=== PATIENT | male | born 1950 | race African-American/Black ===

== ENCOUNTER 2019-02-09 01:04 | Inpatient (IN) | payer MEDICARE ==
[2019-02-09] MEDS ORDERED: ASPIRIN 81 MG TABLET, CHEWABLE PO ONE (01:28)
--- NOTE | 2019-02-09 01:59 | ER Document Report ---
ED Medical Screen (RME) - General Chief Complaint: Chest Pain Stated Complaint: CHEST PAIN Time Seen by Provider: 02/09/19 01:51 Primary Care Provider: YANIV MONTANO [Primary Care Provider] - Follow up as needed Notes: Patient is a 68-year-old male who presents the emergency department with a chief complaint of chest pain. He is driving from [place] here to [place] to be transferred to [facility]. He had been in the car the whole time and did not get out frequently. Patient has a history of a CVA and MD in the past. He has stents placed 4 to 5 years ago. Exam: S1-S2. Retractions noted. I have greeted and performed a rapid initial assessment of this patient. A comprehensive ED assessment and evaluation of the patient, analysis of test results and completion of medical decision making process will be conducted by an additional ED providers. TRAVEL OUTSIDE OF THE [place] IN LAST 30 DAYS: No Physical Exam - Vital signs Vitals: Temp Pulse Resp BP Pulse Ox 98.3 F 95 20 188/136 H 97 02/09/19 01:42 02/09/19 01:42 02/09/19 01:42 02/09/19 01:42 02/09/19 01:42 Course - Vital Signs Vital signs: Temp Pulse Resp BP Pulse Ox 98.3 F 95 20 188/136 H 97 02/09/19 01:42 02/09/19 01:42 02/09/19 01:42 02/09/19 01:42 02/09/19 01:42 Doctor's Discharge - Discharge Referrals: YANIV MONTANO [Primary Care Provider] - Follow up as needed
[2019-02-09 02:38] LABS: ABSOLUTE BASOPHILS # (AUTO) 0.1 10^3/uL (0.0-0.2); ABSOLUTE EOSINOPHILS # (AUTO) 0.2 10^3/uL (0.0-0.6); ABSOLUTE LYMPHOCYTES (AUTO) 1.8 10^3/uL (0.5-4.7); ABSOLUTE NEUT (AUTO) 5.3 10^3/uL (1.7-8.2); BASOPHILS % (AUTO) 0.9 % (0-2); EOSINOPHILS % (AUTO) 2.8 % (0-6); HEMATOCRIT 48.5 % (37.9-51.0); LYMPHOCYTES % (AUTO) 21.4 % (13-45); MEAN CORPUSCULAR HEMOGLOBIN 28.6 pg (27.0-33.4); MEAN CORPUSCULAR VOLUME 87 fl (80-97); MONOCYTES % (AUTO) 12.2 % (3-13); PLATELET COUNT 196 10^3/uL (150-450); RED CELL DISTRIBUTION WIDTH 15.4 % (11.5-14.0); SEGMENTED NEUTROPHILS % (AUTO) 62.7 % (42-78); TOTAL CELLS COUNTED % (AUTO) 100 %; WHITE BLOOD COUNT 8.5 10^3/uL (4.0-10.5)
--- NOTE | 2019-02-09 02:42 | RADIOLOGY REPORT (SQ) ---
EXAM DESCRIPTION: XR CHEST 1 VIEW COMPLETED DATE/TME: 02/09/2019 01:28 CLINICAL HISTORY: 68 years Male, CP COMPARISON: None. NUMBER OF VIEWS/TECHNIQUE: 1/AP FINDINGS: Small obscuration-effusion of the left costophrenic angle. Adequate lung volume, normal cardiac silhouette, and sternotomy. Cardiac/mediastinal hardware/clips. IMPRESSION: Small obscuration-effusion of the left costophrenic angle.
[2019-02-09 02:53] LABS: ALANINE AMINOTRANSFERASE 23 U/L (21-72); ALBUMIN 4.5 g/dL (3.5-5.0); ALKALINE PHOSPHATASE 94 U/L (38-126); ANION GAP 11 (5-19); ASPARTATE AMINO TRANSFERASE 15 U/L (17-59); BILIRUBIN,DIRECT 0.3 mg/dL (0.0-0.4); BILIRUBIN,TOTAL 0.4 mg/dL (0.2-1.3); BLOOD UREA NITROGEN 16 mg/dL (7-20); CALCIUM 9.9 mg/dL (8.4-10.2); CARBON DIOXIDE 28 mmol/L (22-30); CHLORIDE 103 mmol/L (98-107); CREATINE KINASE 128 U/L (55-170); GLUCOSE 148 mg/dL (75-110); POTASSIUM 4.2 mmol/L (3.6-5.0); SODIUM 141.8 mmol/L (137-145); TOTAL PROTEIN 8.2 g/dL (6.3-8.2)
[2019-02-09 03:04] LABS: CREATINE KINASE MB 3.12 ng/mL (<4.55)
[2019-02-09 03:05] LABS: TROPONIN I 0.04 ng/mL
--- NOTE | 2019-02-09 03:06 | ER Document Report ---
ED General - General TRAVEL OUTSIDE OF THE [place] IN LAST 30 DAYS: No <CLAIRE POOLE - Last Filed: 02/09/19 06:55> <EZ MEDEIROS - Last Filed: 02/09/19 11:18> - General Stated Complaint: CHEST PAIN Time Seen by Provider: 02/09/19 01:51 Primary Care Provider: YANIV MONTANO [NO LOCAL MD] - Follow up as needed Notes: Patient is a pleasant 68-year-old male who presents with complaint of chest pain. He is actually being moved here from [place]. She is supposed to stay at [facility]. His son was driving him back here from [place]. On the way here he started having chest pain substernal nonradiating. Mild shortness of breath. No diaphoresis. Patient says his pain is not typical for him. He does have history of coronary disease as well as open heart surgery coronary bypass. That was done somewhere between 5 and 10 years ago. No recent heart catheterizations. No nausea. No vomiting. No other complaints at this time. (CLAIRE POOLE) - Related Data Allergies/Adverse Reactions: No Known Allergies Allergy (Unverified 02/09/19 02:04) Past Medical History - Social History Smoking Status: Never Smoker Chew tobacco use (# tins/day): No Frequency of alcohol use: None Drug Abuse: None Family History: Reviewed & Not Pertinent Patient has suicidal ideation: No Patient has homicidal ideation: No - Past Medical History Cardiac Medical History: Reports: Hx Congestive Heart Failure, Hx Hypertension Pulmonary Medical History: Reports: Hx COPD Endocrine Medical History: Reports: Hx Diabetes Mellitus Type 1 Renal/ Medical History: Denies: Hx Peritoneal Dialysis <CLAIRE POOLE - Last Filed: 02/09/19 06:55> Review of Systems <CLAIRE POOLE - Last Filed: 02/09/19 06:55> - Review of Systems Notes: My Normal Review Basic REVIEW OF SYSTEMS: CONSTITUTIONAL : Denies fever, chills, or sweats. Denies recent illness. EENT: Denies eye, ear, throat, or mouth pain or symptoms. Denies nasal or sinus congestion. CARDIOVASCULAR: Chest pain RESPIRATORY: Denies cough, cold, or chest congestion. Some mild difficulty breathing. GASTROINTESTINAL: Denies abdominal pain. Denies nausea, vomiting, or diarrhea. MUSCULOSKELETAL: Denies neck or back pain or joint pain or swelling. SKIN: Denies rash or skin lesions. NEUROLOGICAL: Denies altered mental status or loss of consciousness. Denies headache. Denies weakness or paralysis or loss of use of either side. Denies problems with gait or speech. Denies sensory or motor loss. ALL OTHER SYSTEMS REVIEWED AND NEGATIVE. (CLAIRE POOLE) Physical Exam <CLAIRE POOLE - Last Filed: 02/09/19 06:55> - Vital signs Vitals: Temp Pulse Resp BP Pulse Ox 98.3 F 95 20 188/136 H 97 02/09/19 01:42 02/09/19 01:42 02/09/19 01:42 02/09/19 01:42 02/09/19 01:42 - Notes Notes: General Appearance: Well nourished, alert, cooperative, no acute distress, no obvious discomfort. Vitals: reviewed, See vital signs table. Head: no swelling or tenderness to the head Eyes: PERRL, EOMI, Conjuctiva clear Mouth: No decreasd moisture Lungs: No wheezing, No rales, No rhonci, No accessory muscle use, good air exchange bilaterally. Heart: Normal rate, Regular rythm, No murmur, no rub Abdomen: Normal BS, soft, No rigidity, No abdominal tenderness, No guarding, no rebound Extremities: good pulses in all extremities, no swelling or tenderness in the extremities, no edema. Skin: warm, dry, appropriate color, no rash Neuro: speech clear, oriented x 3, normal affect, responds appropriately to questions. (CLAIRE POOLE) Course - Laboratory Result Diagrams: 02/09/19 02:28 02/09/19 02:28 <CLAIRE POOLE - Last Filed: 02/09/19 06:55> - Laboratory Result Diagrams: 02/09/19 02:28 02/09/19 02:28 <EZ MEDEIROS - Last Filed: 02/09/19 11:18> - Re-evaluation Re-evalutation: 02/09/19 04:54 Patient's chest pain is improved with application of Nitropaste. Has looked over his med list and he does not think he had any his meds in last 24 hours. His most likewise blood pressure still high. I will give him amlodipine, metopr olol, and clonidine. These all medications off his medication list. Due to his significant hypertension and chest pain and history of coronary disease I think is appropriate to admit him. I will speak with the hospitalist about admission. 02/09/19 06:57 [address] did speak with Dr. Fernandez, hospitalist, who requested I do repeat troponin he would pass on information of the patient to the [facility] hospitalist team to evaluate the patient for admission after repeat troponin. She remains chest pain-free with Nitropaste. Blood pressure continues to run low but high despite receiving his home blood pressure medications. Will order a dose of hydralazine. Dictation of this chart was performed using voice recognition software; therefore, there may be some unintended grammatical errors. 02/09/19 06:58 (CLAIRE POOLE) 02/09/19 11:17 Third troponin continues to be indeterminate 0.062, patient continues to be chest pain-free. Discussed the patient with Dr. Zarco who asked us to presented to Dr. Kearns, Dr. Kearns asked me to discuss the patient with Dr. Reese as the patient is a cardiac patient. Discussed the patient with Dr. Julien who agrees that we can continue to keep this chest pain patient pain free patient here while we continue to trend their troponins. After this discussion Dr. Veena jordan agrees to admit the patient to the telemetry care unit. (EZ MEDEIROS) - Vital Signs Vital signs: Temp Pulse Resp BP Pulse Ox 99.1 F 95 16 178/118 H 97 02/09/19 09:13 02/09/19 01:42 02/09/19 09:02 02/09/19 09:02 02/09/19 09:02 - Laboratory Laboratory results interpreted by me: 02/09/19 02/09/19 02:28 02:28 RBC 5.60 H RDW 15.4 H Est GFR (Non-Af Amer) 58 L Glucose 148 H AST 15 L - EKG Interpretation by Me Additional EKG results interpreted by me: 02/09/19 03:06 EKG is reviewed and interpreted by me. EKG shows sinus rhythm with a rate of [address] segment elevation or depression. No ischemic T wave inversions. MI interval and QTc intervals are within normal range. QRS duration is slightly prolonged. No old EKG available for comparison. (CLAIRE POOLE) Discharge <CLAIRE POOLE - Last Filed: 02/09/19 06:55> - Discharge Admitting Provider: Som (Hospitalist) Unit Admitted: Telemetry <EZ MEDEIROS - Last Filed: 02/09/19 11:18> - Discharge Clinical Impression: Chest pain Qualifiers: Chest pain type: unspecified Qualified Code(s): R07.9 - Chest pain, unspecified Hypertension Qualifiers: Hypertension type: unspecified Qualified Code(s): I10 - Essential (primary) hypertension Condition: Good Disposition: ADMITTED OBSERVATION Referrals: LOCALMD,NO [NO LOCAL MD] - Follow up as needed
--- NOTE | 2019-02-09 04:12 | RADIOLOGY REPORT (SQ) ---
CLINICAL HISTORY: chest pain; was on long car ride COMPARISON: None. TECHNIQUE: CT CHEST ANGIOGRAPHY WITHOUT THEN WITH IV CONTRAST on 02/09/2019 1:57 AM CDT. MIPS reconstructions were generated. This exam was performed according to our departmental dose-optimization program, which includes automated exposure control, adjustment of the mA and/or kV according to patient size and/or use of iterative reconstruction technique. MIP images were generated. FINDINGS: Thoracic aorta is normal in course and caliber without aneurysm or dissection. Pulmonary arteries are adequately opacified without acute or chronic filling defects. The heart is mildly enlarged following sternotomy. There is no pericardial effusion. Intrathoracic lymph nodes are not enlarged. There is no pleural effusion, pleural thickening or pneumothorax. Central airways are patent. Lungs are clear with no consolidation, mass or interstitial lung disease. There are no acute abnormalities within the limited images of the upper abdomen. There are no acute osseous findings. No suspicious bony lesions. IMPRESSION: No aortic dissection or aneurysm. No pulmonary embolus. No pneumonia.
[2019-02-09] MEDS ORDERED: NITROGLYCERIN 2% OINTMENT 1 GM PACKET TP ONE (04:17)
[2019-02-09] MEDS ORDERED: HYDRALAZINE HCL INJ/PF 20 MG/1 ML SDV IV ONE ×2 (04:50→06:59)
[2019-02-09] MEDS ORDERED: METOPROLOL TARTRATE 100 MG TABLET PO ONE (04:52)
[2019-02-09] MEDS ORDERED: CLONIDINE HCL 0.1 MG TABLET PO ONE (04:52)
[2019-02-09] MEDS ORDERED: AMLODIPINE BESYLATE 10 MG TABLET PO ONE (04:52)
--- NOTE | 2019-02-09 07:57 | EKG REPORT ---
SEVERITY:- DEFECTIVE ECG - SINUS RHYTHM PROBABLE LEFT ATRIAL ABNORMALITY BASELINE ARTIFACT.REPEAT EKG : Confirmed by: Leydi Julien MD 09-Feb-2019 07:57:00
[2019-02-09] MEDS ORDERED: ONDANSETRON HCL INJ/PF 4 MG/2 ML SDV IV PRN (11:31)
[2019-02-09] MEDS ORDERED: OXYCODONE-ACETAMINOPHEN 5-325 MG TABLET PO PRN (11:31)
[2019-02-09] MEDS ORDERED: DEXTROSE 50%-WATER 25 GM/50 ML DISP.SYRIN IV PRN ×2 (11:49)
[2019-02-09] MEDS ORDERED: DEXTROSE 40% GEL 15 GM TUBE PO PRN ×2 (11:49)
[2019-02-09] MEDS ORDERED: GLUCAGON,HUMAN RECOMB 1 MG INJ IM PRN (11:49)
--- NOTE | 2019-02-09 11:49 | PDOC H&P ---
History of Present Illness Admission Date/PCP: 02/09/19 11:25 History of Present Illness: LATRICE MAO is a 68 year old black male patient was past medical history of hypertension, congestive heart failure, COPD, type 2 diabetes mellitus coronary artery disease status post coronary artery bypass graft about 10 years ago and history of stroke with residual left-sided weakness and contracture, presented with chief complaint of chest pain. Patient is moved from [place] to [facility] in order to stay at [facility] long-term. His son was driving him back here from [place]. Enroute to [place] patient started to complain of chest pain which is localized to his substernal area nonradiating and about 1 out of 10 on pain scale at the time of my interview. Patient denies any palpitation or diaphoresis. He does not have any fever, cough, nausea, vomiting, abdominal pain, diarrhea or urinary complaints. His CT scan of the chest with contrast reported as no aortic dissection or aneurysm. No pneumonia. No PE. His blood work shows troponin of 0.040 next test 0.051 and the surgeon states is 0.062. Since patient has multiple risk factor for acute coronary syndrome I think is appropriate to admit him for observation and monitoring. Past Medical History Cardiac Medical History: Reports: Congestive Heart Failure, Hypertension Pulmonary Medical History: Reports: Chronic Obstructive Pulmonary Disease (COPD) Endocrine Medical History: Reports: Diabetes Mellitus Type 1 Social History Smoking Status: Never Smoker - Advance Directive Resuscitation Status: Full Code Family History Family History: Reviewed & Not Pertinent Parental Family History Reviewed: Yes Children Family History Reviewed: Yes Sibling(s) Family History Reviewed.: Yes Medication/Allergy Home Medications: Acetaminophen [Tylenol 325 mg Tablet] 650 mg PO Q6HP PRN 02/09/19 Amantadine HCl [Amantadine] 100 mg PO BID@0800,1200 02/09/19 Amlodipine Besylate [Norvasc 10 mg Tablet] 10 mg PO DAILY 02/09/19 Aspirin [Adult Low Dose Aspirin EC] 81 mg PO QAM 02/09/19 Atorvastatin Calcium [Lipitor 80 mg Tablet] 80 mg PO QHS 02/09/19 Baclofen [Baclofen 20 mg Tablet] 30 mg PO TIDP PRN 02/09/19 Clonidine HCl [Catapres 0.1 mg Tablet] 0.1 mg PO BID 02/09/19 Hydralazine HCl 100 mg PO TID 02/09/19 Ibuprofen [Motrin 400 mg Tablet] 400 mg PO DAILYP PRN 02/09/19 Ipratropium/Albuterol Sulfate [Duoneb 3 ml Ampul] 3 ml NEB RTQ6HP PRN 02/09/19 Metoprolol Tartrate [Lopressor 100 mg Tablet] 100 mg PO BID 02/09/19 Multivitamin [Multiple Vitamins] 1 tab PO DAILY 02/09/19 Polyethylene Glycol 3350 [Miralax Powder 17 gm/Packet] 17 gm PO DAILY 02/09/19 Allergies/Adverse Reactions: No Known Allergies Allergy (Unverified 02/09/19 02:04) Review of Systems Eyes: PRESENT: as per HPI Ears: PRESENT: as per HPI Nose, Mouth, and Throat: PRESENT: as per HPI Cardiovascular: PRESENT: chest pain Gastrointestinal: PRESENT: as per HPI Genitourinary: PRESENT: as per HPI Musculoskeletal: PRESENT: as per HPI Neurological: PRESENT: as per HPI Physical Exam Vital Signs: Temp Pulse Resp BP Pulse Ox 99.1 F 95 16 178/118 H 97 02/09/19 09:13 02/09/19 01:42 02/09/19 09:02 02/09/19 09:02 02/09/19 09:02 Intake & Output 02/08/19 02/09/19 02/10/19 06:59 06:59 06:59 Weight 88.451 kg General appearance: PRESENT: no acute distress Head exam: PRESENT: atraumatic Eye exam: PRESENT: conjunctiva pink Mouth exam: PRESENT: moist Neck exam: ABSENT: carotid bruit, JVD, lymphadenopathy, thyromegaly Respiratory exam: PRESENT: clear to auscultation sanchez. ABSENT: rales, rhonchi, wheezes Cardiovascular exam: PRESENT: RRR. ABSENT: diastolic murmur, rubs, systolic murmur GI/Abdominal exam: PRESENT: normal bowel sounds, soft. ABSENT: distended, gua rding, mass, organolmegaly, rebound, tenderness Neurological exam: PRESENT: alert, awake, oriented to person, oriented to place, other - Left-sided weakness and contracture Results Laboratory Results: 02/09/19 02:28 02/09/19 02:28 02/09/19 02/09/19 02:28 02:28 WBC 8.5 RBC 5.60 H Hgb 16.0 Hct 48.5 MCV 87 MCH 28.6 MCHC 33.0 RDW 15.4 H Plt Count 196 Seg Neutrophils % 62.7 Lymphocytes % 21.4 Monocytes % 12.2 Eosinophils % 2.8 Basophils % 0.9 Absolute Neutrophils 5.3 Absolute Lymphocytes 1.8 Absolute Monocytes 1.0 Absolute Eosinophils 0.2 Absolute Basophils 0.1 Sodium 141.8 Potassium 4.2 Chloride 103 Carbon Dioxide 28 Anion Gap 11 BUN 16 Creatinine 1.24 Est GFR ( Amer) > 60 Est GFR (Non-Af Amer) 58 L Glucose 148 H Calcium 9.9 Total Bilirubin 0.4 AST 15 L ALT 23 Alkaline Phosphatase 94 Total Protein 8.2 Albumin 4.5 02/09/19 02/09/19 02/09/19 02:28 02:28 05:48 Creatine Kinase 128 CK-MB (CK-2) 3.12 Troponin I 0.040 0.051 02/09/19 09:46 Creatine Kinase CK-MB (CK-2) Troponin I 0.062 Impressions: Chest X-Ray 02/09/19 01:28 IMPRESSION: Small obscuration-effusion of the left costophrenic angle. Chest/Abdomen CTA 02/09/19 01:57 IMPRESSION: No aortic dissection or aneurysm. No pulmonary embolus. No pneumonia. Assessment and Plan - Diagnosis (1) Chest pain Qualifiers: Chest pain type: other chest pain Qualified Code(s): R07.89 - Other chest pain; R07.8 - Other chest pain Is this a current diagnosis for this admission?: Yes Plan: Since patient has multiple risk factors like hypertension, diabetes mellitus, coronary artery disease it is appropriate to admit this patient for observation. We will trend his cardiac enzymes and stress test in the morning. (2) Congestive heart failure Qualifiers: Heart failure type: systolic Heart failure chronicity: chronic Qualified Code(s): I50.22 - Chronic systolic (congestive) heart failure Is this a current diagnosis for this admission?: Yes Plan: To his heart medications. (3) Hypertension Qualifiers: Hypertension type: essential hypertension Qualified Code(s): I10 - Essential (primary) hypertension Is this a current diagnosis for this admission?: Yes Plan: Continue his home medications. (4) COPD (chronic obstructive pulmonary disease) Qualifiers: Emphysema type: unspecified Is this a current diagnosis for this admission?: Yes Plan: I will put him on PRN bronchodilators. (5) Type 2 diabetes mellitus Is this a current diagnosis for this admission?: Yes Plan: We will continue his home medication. Sliding scale.
[2019-02-09] MEDS: NORMAL SALINE 1000 ML 1,000 ML IV PRN ×2 (12:25→21:42)
[2019-02-09] MEDS: ENOXAPARIN SODIUM INJ 40 MG/0.4 ML DISP.SYRIN SUBCUT SCH (12:25)
[2019-02-09] MEDS ORDERED: HYDRALAZINE HCL 50 MG TABLET PO ONE (14:10)
[2019-02-09] MEDS: INSULIN LISPRO 100 UNIT/ML 3 ML VIAL SUBCUT SCH ×2 (17:23→21:40)
[2019-02-09] MEDS: HYDRALAZINE HCL 50 MG TABLET PO SCH (18:00)
[2019-02-09] MEDS: DOCUSATE SODIUM 100 MG CAPSULE PO SCH (18:00)
[2019-02-09] MEDS: FAMOTIDINE 20 MG TABLET PO SCH (21:40)
[2019-02-09] MEDS ORDERED: HYDRALAZINE HCL 50 MG TABLET PO SCH (22:00)
[2019-02-10] MEDS ORDERED: BACLOFEN 20 MG TABLET PO ONE (02:00)
[2019-02-10] MEDS ORDERED: BACLOFEN 10 MG TABLET ONE (02:13)
[2019-02-10] MEDS ORDERED: BACLOFEN 20 MG TABLET ONE (02:14)
[2019-02-10] MEDS: HYDRALAZINE HCL 50 MG TABLET PO SCH ×3 (02:19→23:56)
[2019-02-10 05:25] LABS: ANION GAP 11 (5-19); BLOOD UREA NITROGEN 15 mg/dL (7-20); CALCIUM 9.1 mg/dL (8.4-10.2); CARBON DIOXIDE 24 mmol/L (22-30); CHLORIDE 103 mmol/L (98-107); GLUCOSE 184 mg/dL (75-110); POTASSIUM 4.1 mmol/L (3.6-5.0); SODIUM 138.2 mmol/L (137-145)
[2019-02-10] MEDS: INSULIN LISPRO 100 UNIT/ML 3 ML VIAL SUBCUT SCH ×4 (08:43→22:25)
[2019-02-10] MEDS: FAMOTIDINE 20 MG TABLET PO SCH ×2 (10:04→22:27)
[2019-02-10] MEDS: ENOXAPARIN SODIUM INJ 40 MG/0.4 ML DISP.SYRIN SUBCUT SCH (10:04)
[2019-02-10] MEDS: DOCUSATE SODIUM 100 MG CAPSULE PO SCH ×2 (10:04→18:10)
[2019-02-10] MEDS: NITROGLYCERIN 10 MG (0.4 MG/HR) PATCH.TD24 TD SCH (10:29)
[2019-02-10] MEDS ORDERED: ONDANSETRON HCL INJ/PF 4 MG/2 ML SDV IV PRN (10:30)
[2019-02-10] MEDS ORDERED: IPRATROPIUM/ALBUTEROL 0.5-2.5 MG/3 ML AMPUL NEB PRN (17:24)
[2019-02-10] MEDS ORDERED: ACETAMINOPHEN 325 MG TABLET PO PRN (17:24)
[2019-02-10] MEDS ORDERED: BACLOFEN 20 MG TABLET PO PRN (17:24)
--- NOTE | 2019-02-10 17:30 | PDOC PROGRESS REPORT ---
Subjective Progress Note for:: 02/10/19 Subjective:: LATRICE MAO is a 68 year old black male patient was past medical history of hypertension, congestive heart failure, COPD, type 2 diabetes mellitus coronary artery disease status post coronary artery bypass graft about 10 years ago and history of stroke with residual left-sided weakness and contracture, presented with chief complaint of chest pain. Patient is moved from [place] to [place] in order to stay at [facility] longterm. His son was driving him back here from [place]. Enroute to [place] patient started to complain of chest pain which is localized to his substernal area nonradiating and about 1 out of 10 on pain scale at the time of my interview. Patient denies any palpitation or diaphoresis. He does not have any fever, cough, nausea, vomiting, abdominal pain, diarrhea or urinary complaints. His CT scan of the chest with contrast reported as no aortic dissection or aneurysm. No pneumonia. No PE. His blood work shows troponin of 0.040 next test 0.051 and the surgeon states is 0.062. Since patient has multiple risk factor for acute coronary syndrome I think is appropriate to admit him for observation and monitoring. 02/10/19: Patient seen propped up in bed and enjoying his lunch. He is awake alert and oriented. This morning patient is taken to cardiology need for nuclear stress test but patient not able to participate so the procedure consulted. Anaya evaluated the patient and he recommended medical manag ement only. farmworkers consulted for rehab placement. Reason For Visit: CHEST PAIN Physical Exam Vital Signs: Temp Pulse Resp BP Pulse Ox 98.9 F 97 16 132/64 H 95 02/10/19 03:30 02/10/19 14:00 02/10/19 03:30 02/10/19 03:30 02/10/19 03:30 Intake & Output 02/09/19 02/10/19 02/11/19 06:59 06:59 06:59 Intake Total 1608 Balance 1608 Weight 88.451 kg 88.4 kg General appearance: PRESENT: no acute distress Head exam: PRESENT: atraumatic Neck exam: ABSENT: carotid bruit, JVD, lymphadenopathy, thyromegaly Respiratory exam: PRESENT: clear to auscultation sanchez. ABSENT: rales, rhonchi, wheezes Cardiovascular exam: PRESENT: RRR. ABSENT: diastolic murmur, rubs, systolic murmur Neurological exam: PRESENT: alert, awake Results Laboratory Results: 02/09/19 02:28 02/10/19 04:12 02/10/19 04:12 Sodium 138.2 Potassium 4.1 Chloride 103 Carbon Dioxide 24 Anion Gap 11 BUN 15 Creatinine 1.07 Est GFR ( Amer) > 60 Est GFR (Non-Af Amer) > 60 Glucose 184 H Calcium 9.1 02/09/19 02/09/19 02/09/19 02:28 02:28 05:48 Creatine Kinase 128 CK-MB (CK-2) 3.12 Troponin I 0.040 0.051 02/09/19 02/09/19 02/09/19 09:46 15:52 21:57 Creatine Kinase CK-MB (CK-2) Troponin I 0.062 0.060 0.053 02/10/19 04:12 Creatine Kinase CK-MB (CK-2) Troponin I 0.053 Impressions: Chest X-Ray 02/09/19 01:28 IMPRESSION: Small obscuration-effusion of the left costophrenic angle. Chest/Abdomen CTA 02/09/19 01:57 IMPRESSION: No aortic dissection or aneurysm. No pulmonary embolus. No pneumonia. Assessment and Plan - Diagnosis (1) Chest pain Qualifiers: Chest pain type: other chest pain Qualified Code(s): R07.89 - Other chest pain; R07.8 - Other chest pain Is this a current diagnosis for this admission?: Yes Plan: Patient remained chest pain-free. Patient is not able to participate with stress test. (2) Congestive heart failure Qualifiers: Heart failure type: systolic Heart failure chronicity: chronic Qualified Code(s): I50.22 - Chronic systolic (congestive) heart failure Is this a current diagnosis for this admission?: Yes Plan: To his heart medications. (3) Hypertension Qualifiers: Hypertension type: essential hypertension Qualified Code(s): I10 - Essential (primary) hypertension Is this a current diagnosis for this admission?: Yes Plan: Continue his home medications. (4) COPD (chronic obstructive pulmonary disease) Qualifiers: Emphysema type: unspecified Is this a current diagnosis for this admission?: Yes Plan: I will put him on PRN bronchodilators. (5) Type 2 diabetes mellitus Is this a current diagnosis for this admission?: Yes Plan: We will continue his home medication. Sliding scale.
[2019-02-10] MEDS ORDERED: CLONIDINE HCL 0.1 MG TABLET PO SCH (18:00)
[2019-02-10] MEDS ORDERED: (PENDING PHARMACY ID) (Hydralazine Hcl [Hydralazine Hcl] 100 MG) PO SCH (18:00)
--- NOTE | 2019-02-10 20:32 | PDOC CONSULTATION ---
Consultation-Blank Consultation: CARDIOLOGY CONSULTATION by Dr. Leydi Montanez on 02/10/2019. Patient seen at 9 AM on 02/10/2019. CONSULT REQUESTING PHYSICIAN: Dr. Dior [facility] hospitalist physician. REASON FOR CONSULTATION: Patient admitted with chest pain, with a history of coronary artery disease, history of coronary bypass graft surgery, and inability to perform a nuclear Cardiolite stress test due to the patient's physical limitations. HISTORY PRESENT ILLNESS: Note patient is not a very good historian. He probably has mild dementia. Discussed the patient's son. Patient is a 68-year-old Afro- Irish male with known history of hypertension, coronary artery disease, history of coronary artery bypass graft surgery 10 years ago, COPD, and history of CVA x2 with significant left-sided weakness with contractures and inability to straighten the left lower extremity or able to lift the left upper extremity due to contractures. Chart also states that the patient has a history of diabetes mellitus, but the patient's home medications do not list any antidiabetic medication. The patient has been moved by the son to from [place] to [facility] here and in route the patient no chest pain. Most likely the patient had missed his doses of blood pressure medications. He is not able to tell me exactly what the pain was put from the ER physician description it was not typical of his anginal symptoms and the patient had chest pain. It is also noted that his blood pressure was very high at 188/136. The patient was given Nitropaste and his blood pressure medication was resumed and subsequently the patient's chest pain resolved. There was no acute EKG changes. And the patient's troponin I was negative./Indeterminate. The patient was scheduled for a stress test but due to the patient's inability to bend the left knee and inability to lift the left arm he could not fit on the imaging camera table. Hence the stress test was not performed. At present the patient denies any chest pain or discomfort. He denies any PND orthopnea or leg edema. There is no recurrence of his TIA or CVA symptoms. PAST MEDICAL HISTORY. He has a history of COPD, not on home oxygen. No recent symptoms of acute exacerbation of COPD. He has a history of hypertension. He has a history of coronary artery disease. The patient's son states the patient has not had an AL. He has had a history coronary artery bypass graft surgery about 10 years ago no other details are available. He has a past history of congestive heart failure. None in a long time. He has a history of diabetes mellitus listed on the chart, but he is not on any antidiabetic medications at home.. The patient had CVA x2 one prior to his coronary artery bypass graft surgery, and one after his coronary bypass graft surgery. He has significant left-sided weakness. And contractures due to residual of the CVA. He has no history of chronic kidney disease. He has a history of COPD.. No history of sleep apnea. No history of thyroid disease. Has a history of hyperlipidemia. There is no history of chronic kidney disease. PAST SURGICAL HISTORY history of coronary artery bypass graft surgery. ALLERGIES: No known allergies. FAMILY HISTORY: Is positive for hypertension and coronary artery disease. SOCIAL HISTORY: He quit smoking about a little more than a year ago. There is no history of EtOH abuse. RESUSCITATION status:: The patient is a full code. The patient's son is his healthcare power of consumer attorney. REVIEW SYSTEMS: Not much available due to the patient being mildly demented and answering only with one line answers. CONSTITUTIONAL no history of fever chills or rigors. Has generalized fatigue. HEAD: No history of headaches or head injury. EYES: No history of diplopia diplopia. EARS: No history of hearing loss. ENT is negative for any tinnitus vertigo hayfever nosebleeds or dysphagia. LUNGS: History of COPD. No recent symptoms of acute exacerbation of COPD. No history of sleep apnea. No history of pulmonary embolism. HEART: History of hypertension present the patient as per the son is on multiple medications to control his blood pressure. History of coronary bypass graft surgery for coronary artery disease. Past history of congestive heart failure. No recent leg edema. No recent symptoms of PND orthopnea. ENDOCRINE: History of diabetes mellitus. No polydipsia polyuria. No history of heat or cold intolerance. GI: No history of GI bleed. No history of fatty food intolerance. RENAL: No history of chronic kidney disease. No symptoms of UTI. MUSCULOSKELETAL: History of arthritis present no history of collagenous vascular disease DRYWALL PROFESSIONAL: Past history of CVA x2 with significant residual left-sided weakness and contractures of the left upper and lower extremities. PSYCHIATRIC: Patient probably has mild dementia as per the son. There is no history of homicidal or suicidal ideation. PHYSICAL EXAMINATION: The patient is well-built. He is well-nourished. In no acute distress. He appears to be mildly confused. Selected Entries 02/10/19 02/10/19 02/10/19 03:30 07:00 10:00 Temperature 98.9 F Temperature Oral Source Pulse Rate 65 81 Blood Pressure 132/64 H [Left Upper Arm ] Blood Pressure 86 Mean [Left Upper Arm] Blood Pressure Supine Position [Left Upper Arm] Oxygen Delivery Nasal Cannula Method ( includes room air) Oxygen Flow 3 Rate HEAD: Is atraumatic normocephalic. EYES: Pupils are equal round regular reactive light accommodation. Extraocular movements are normal. There is no conjunctival pallor. There is no scleral icterus. ENT: Is negative. NECK: Is supple. There is no JVD. Carotids are equal there is no bruits. There is no lymphadenopathy. There is no goiter. There is no accessory muscle respiration use. Trachea central. LUNGS: Show diminished air entry prolonged expiratory expiration. There is no rhonchi rales or wheezing. There is no chest wall tenderness. There is hyperresonance on percussion. HEART: S1-S2 is heard. There is an S4 gallop present there is no S3 gallop there is no S4 gallop. There is a systolic murmur left sternal border and the apex there is no rub. ABDOMEN: Soft. Nontender there is no hepatospleno megaly bowel sounds are well heard. Extremities: Femorals are slightly diminished. There is no femoral bruits. Leg pulses are diminished. There is no pedal edema. DRYWALL PROFESSIONAL: The patient is conscious slightly confused. There is residual left-sided weakness with contractures of the upper and lower extremities. PSYCHIATRIC: The patient does not appear to be agitated or or anxious. Current Medications Generic Name Dose Route Start Last Admin Trade Name Freq PRN Reason Stop Dose Admin Acetaminophen 650 mg 02/10/19 17:24 Tylenol 325 Mg Tablet PO 03/12/19 17:23 Q6HP PRN FOR PAIN Albuterol/Ipratropium 3 ml 02/10/19 17:24 Duoneb 3 Ml Ampul NEB 03/12/19 17:23 RTQ6HP PRN SHORTNESS OF BREATH Amantadine HCl 100 mg 02/11/19 08:00 Symmetrel 100 Mg Capsule PO 03/13/19 07:59 BID@0800,1200 PRABHA Amlodipine Besylate 10 mg 02/11/19 10:00 Norvasc 10 Mg Tablet PO 03/13/19 09:59 DAILY [facility] Aspirin 81 mg 02/11/19 08:00 Ecotrin 81 Mg Ec Tablet PO 03/13/19 07:59 QAM [facility] Atorvastatin Calcium 80 mg 02/10/19 22:00 02/10/19 22:28 Lipitor 80 Mg Tablet PO 03/12/19 21:59 80 mg QHS [facility] Administration Baclofen 30 mg 02/10/19 17:24 Baclofen 20 Mg Tablet PO 03/12/19 17:23 TIDP PRN FOR PAIN Clonidine 0.1 mg 02/10/19 22:00 Catapres 0.1 Mg Tablet PO 03/12/19 21:59 Q12 PRABHA Dextrose 25 gm 02/09/19 11:49 Dextrose Inj 50% Syringe (25 Gm/50 Ml) IV 03/11/19 11:48 PRN PRN PER PROTOCOL Protocol Dextrose 12.5 gm 02/09/19 11:49 Dextrose Inj 50% Syringe (25 Gm/50 Ml) IV 03/11/19 11:48 PRN PRN FOR BG 50-69 IN ALERT PATIENT Protocol Docusate Sodium 100 mg 02/09/19 18:00 02/10/19 18:10 Colace 100 Mg Capsule PO 03/11/19 17:59 Not Given BID [facility] Enoxaparin Sodium 40 mg 02/09/19 12:30 02/10/19 10:04 Lovenox Inj 40 Mg/0.4 Ml Disp.Syrin SUBCUT 03/11/19 12:29 40 mg DAILY [facility] Administration Famotidine 20 mg 02/09/19 22:00 02/10/19 22:27 Pepcid 20 Mg Tablet PO 03/11/19 21:59 20 mg Q12 PRABHA Administration Glucagon 1 mg 02/09/19 11:49 Glucagen Inj 1 Mg Vial IM 03/11/19 11:48 PRN PRN Evaluate for BG < 70 Protocol Glucose 15 gm 02/09/19 11:49 Glutose 40% Gel 15 Gm Tube PO 03/11/19 11:48 PRN PRN FOR BG 50-69 IN ALERT PATIENT Protocol Glucose 30 gm 02/09/19 11:49 Glutose 40% Gel 15 Gm Tube PO 03/11/19 11:48 PRN PRN FOR BG < 50 IN ALERT PATIENT Protocol Hydralazine HCl 100 mg 02/10/19 22:00 Apresoline 50 Mg Tablet PO 03/12/19 21:59 Q8 PRABHA Sodium Chloride 1,000 mls @ 100 mls/hr 02/09/19 11:31 02/10/19 22:37 Nacl 0.9% 1000 Ml Iv Soln IV 03/11/19 11:30 100 mls/hr CONTINUOUS PRN Administration THIS MED IS NOT "PRN" Insulin Human Lispro 0 - 12 unit 02/09/19 16:00 02/10/19 22:25 Humalog Insulin 100 Unit/1 Ml 3 Ml Vial SUBCUT 03/11/19 15:59 Not Given ACHS PRABHA Protocol Metoprolol Tartrate 100 mg 02/10/19 22:00 02/10/19 22:27 Lopressor 100 Mg Tablet PO 03/12/19 21:59 100 mg Q12 PRABHA Administration Multivitamins 1 tab 02/11/19 10:00 Tab-A-Elmer (Multiple Vitamin) Tablet PO 03/13/19 09:59 DAILY PRABHA Nitroglycerin 1 each 02/10/19 10:00 02/10/19 10:29 Nitro-Dur 10 Mg (0.4mg/Hr) Transdermal Patch TD 03/12/19 09:59 1 each DAILY PRABHA Administration Ondansetron HCl 4 mg 02/10/19 10:30 Zofran Inj/Pf 4 Mg/2 Ml Sdv IV 03/11/19 11:30 Q4HP PRN FOR NAUSEA/VOMITING Oxycodone/Acetaminophen 1 tab 02/09/19 11:31 Percocet 5-325 Mg Tablet PO 02/16/19 11:30 Q6HP PRN FOR CHEST PAIN Polyethylene Glycol 17 gm 02/11/19 10:00 Miralax Powder 17 Gm/Packet PO 03/13/19 09:59 DAILY PRABHA Sodium Chloride 2.5 ml 02/09/19 14:00 02/10/19 22:25 Saline Flush 2.5 Ml Monoject Prefil Syrin IV 03/11/19 13:59 Not Given Q8 PRABHA Discontinued Medications Generic Name Dose Route Start Last Admin Trade Name Freq PRN Reason Stop Dose Admin Amlodipine Besylate 10 mg 02/09/19 04:52 02/09/19 05:45 Norvasc 10 Mg Tablet PO 02/09/19 04:53 10 mg NOW ONE Administration Aspirin 324 mg 02/09/19 01:28 02/09/19 05:51 Aspirin 81 Mg Chewable Tablet PO 02/09/19 01:29 Not Given NOW ONE Baclofen 30 mg 02/10/19 02:00 02/10/19 02:19 Baclofen 20 Mg Tablet PO 02/10/19 02:01 30 mg NOW ONE Administration Baclofen Confirm 02/10/19 02:13 02/10/19 02:19 Baclofen 10 Mg Tablet Administered 02/10/19 02:14 Not Given Dose 10 mg .ROUTE .STK-MED ONE Baclofen Confirm 02/10/19 02:14 02/10/19 02:19 Baclofen 20 Mg Tablet Administered 02/10/19 02:15 Not Given Dose 20 mg .ROUTE .STK-MED ONE Clonidine 0.1 mg 02/09/19 04:52 02/09/19 05:45 Catapres 0.1 Mg Tablet PO 02/09/19 04:53 0.1 mg NOW ONE Administration Clonidine 0.2 mg 02/10/19 20:45 02/10/19 20:46 Catapres 0.2 Mg Tablet PO 02/10/19 20:46 0.2 mg NOW ONE Administration Hydralazine HCl 10 mg 02/09/19 04:50 Apresoline Inj/Pf 20 Mg/1 Ml Sdv IV 02/09/19 04:51 NOW ONE Hydralazine HCl 10 mg 02/09/19 06:59 02/09/19 07:03 Apresoline Inj/Pf 20 Mg/1 Ml Sdv IV 02/09/19 07:00 10 mg NOW ONE Administration Hydralazine HCl 50 mg 02/09/19 14:10 02/09/19 17:10 Apresoline 50 Mg Tablet PO 02/09/19 14:11 Not Given NOW ONE Hydralazine HCl 50 mg 02/09/19 22:00 Apresoline 50 Mg Tablet PO 03/11/19 21:59 Q8 PRABHA Hydralazine HCl 50 mg 02/09/19 18:00 02/10/19 10:04 Apresoline 50 Mg Tablet PO 03/11/19 17:59 50 mg Q8A PRABHA Administration Hydralazine HCl 10 mg 02/10/19 21:00 02/10/19 20:46 Apresoline Inj/Pf 20 Mg/1 Ml Sdv IV 02/10/19 21:01 10 mg NOW ONE Administration Metoprolol Tartrate 100 mg 02/09/19 04:52 02/09/19 05:44 Lopressor 100 Mg Tablet PO 02/09/19 04:53 100 mg NOW ONE Administration Nitroglycerin 1 gm 02/09/19 04:17 02/09/19 04:30 Nitrol 2% Ointment 1gm Packet TP 02/09/19 04:18 1 gm NOW ONE Administration Ondansetron HCl 4 mg 02/09/19 11:31 Zofran Inj/Pf 4 Mg/2 Ml Sdv IV 03/11/19 11:30 Q4HP PRN FOR NAUSEA/VOMITING HOME MEDICATIONS: Acetaminophen [Tylenol 325 mg Tablet] 650 mg PO Q6HP PRN 02/09/19 Amantadine HCl [Amantadine] 100 mg PO BID@0800,1200 02/09/19 Amlodipine Besylate [Norvasc 10 mg Tablet] 10 mg PO DAILY 02/09/19 Aspirin [Adult Low Dose Aspirin EC] 81 mg PO QAM 02/09/19 Atorvastatin Calcium [Lipitor 80 mg Tablet] 80 mg PO QHS 02/09/19 Baclofen [Baclofen 20 mg Tablet] 30 mg PO TIDP PRN 02/09/19 Clonidine HCl [Catapres 0.1 mg Tablet] 0.1 mg PO BID 02/09/19 Hydralazine HCl 100 mg PO TID 02/09/19 Ibuprofen [Motrin 400 mg Tablet] 400 mg PO DAILYP PRN 02/09/19 Ipratropium/Albuterol Sulfate [Duoneb 3 ml Ampul] 3 ml NEB RTQ6HP PRN 02/09/19 Metoprolol Tartrate [Lopressor 100 mg Tablet] 100 mg PO BID 02/09/19 Multivitamin [Multiple Vitamins] 1 tab PO DAILY 02/09/19 Polyethylene Glycol 3350 [Miralax Powder 17 gm/Packet] 17 gm PO DAILY 02/09/19 Labs- Entire Visit 02/09/19 02/09/19 02/09/19 02:28 02:28 02:28 WBC 8.5 RBC 5.60 H Hgb 16.0 Hct 48.5 MCV 87 MCH 28.6 MCHC 33.0 RDW 15.4 H Plt Count 196 Seg Neutrophils % 62.7 Lymphocytes % 21.4 Monocytes % 12.2 Eosinophils % 2.8 Basophils % 0.9 Absolute Neutrophils 5.3 Absolute Lymphocytes 1.8 Absolute Monocytes 1.0 Absolute Eosinophils 0.2 Absolute Basophils 0.1 Sodium 141.8 Potassium 4.2 Chloride 103 Carbon Dioxide 28 Anion Gap 11 BUN 16 Creatinine 1.24 Est GFR ( Amer) > 60 Est GFR (Non-Af Amer) 58 L Glucose 148 H POC Glucose Calcium 9.9 Total Bilirubin 0.4 Direct Bilirubin 0.3 Neonat Total Bilirubin Not Reportable Neonat Direct Bilirubin Not Reportable Neonat Indirect Bili Not Reportable AST 15 L ALT 23 Alkaline Phosphatase 94 Creatine Kinase 128 CK-MB (CK-2) 3.12 Troponin I 0.040 Total Protein 8.2 Albumin 4.5 02/09/19 02/09/19 02/09/19 05:48 09:46 15:52 WBC RBC Hgb Hct MCV MCH MCHC RDW Plt Count Seg Neutrophils % Lymphocytes % Monocytes % Eosinophils % Basophils % Absolute Neutrophils Absolute Lymphocytes Absolute Monocytes Absolute Eosinophils Absolute Basophils Sodium Potassium Chloride Carbon Dioxide Anion Gap BUN Creatinine Est GFR ( Amer) Est GFR (Non-Af Amer) Glucose POC Glucose Calcium Total Bilirubin Direct Bilirubin Neonat Total Bilirubin Neonat Direct Bilirubin Neonat Indirect Bili AST ALT Alkaline Phosphatase Creatine Kinase CK-MB (CK-2) Troponin I 0.051 0.062 0.060 Total Protein Albumin 02/09/19 02/09/19 02/09/19 17:22 21:39 21:57 WBC RBC Hgb Hct MCV MCH MCHC RDW Plt Count Seg Neutrophils % Lymphocytes % Monocytes % Eosinophils % Basophils % Absolute Neutrophils Absolute Lymphocytes Absolute Monocytes Absolute Eosinophils Absolute Basophils Sodium Potassium Chloride Carbon Dioxide Anion Gap BUN Creatinine Est GFR ( Amer) Est GFR (Non-Af Amer) Glucose POC Glucose 96 164 H Calcium Total Bilirubin Direct Bilirubin Neonat Total Bilirubin Neonat Direct Bilirubin Neonat Indirect Bili AST ALT Alkaline Phosphatase Creatine Kinase CK-MB (CK-2) Troponin I 0.053 Total Protein Albumin 02/10/19 02/10/19 02/10/19 04:12 04:12 08:12 WBC RBC Hgb Hct MCV MCH MCHC RDW Plt Count Seg Neutrophils % Lymphocytes % Monocytes % Eosinophils % Basophils % Absolute Neutrophils Absolute Lymphocytes Absolute Monocytes Absolute Eosinophils Absolute Basophils Sodium 138.2 Potassium 4.1 Chloride 103 Carbon Dioxide 24 Anion Gap 11 BUN 15 Creatinine 1.07 Est GFR ( Amer) > 60 Est GFR (Non-Af Amer) > 60 Glucose 184 H POC Glucose 102 Calcium 9.1 Total Bilirubin Direct Bilirubin Neonat Total Bilirubin Neonat Direct Bilirubin Neonat Indirect Bili AST ALT Alkaline Phosphatase Creatine Kinase CK-MB (CK-2) Troponin I 0.053 Total Protein Albumin 02/10/19 02/10/19 02/10/19 12:03 16:26 21:11 WBC RBC Hgb Hct MCV MCH MCHC RDW Plt Count Seg Neutrophils % Lymphocytes % Monocytes % Eosinophils % Basophils % Absolute Neutrophils Absolute Lymphocytes Absolute Monocytes Absolute Eosinophils Absolute Basophils Sodium Potassium Chloride Carbon Dioxide Anion Gap BUN Creatinine Est GFR ( Amer) Est GFR (Non-Af Amer) Glucose POC Glucose 140 H 130 H 125 H Calcium Total Bilirubin Direct Bilirubin Neonat Total Bilirubin Neonat Direct Bilirubin Neonat Indirect Bili AST ALT Alkaline Phosphatase Creatine Kinase CK-MB (CK-2) Troponin I Total Protein Albumin Chest X-Ray 02/09/19 01:28 IMPRESSION: Small obscuration-effusion of the left costophrenic angle. Chest/Abdomen CTA 02/09/19 01:57 IMPRESSION: No aortic dissection or aneurysm. No pulmonary embolus. No pneumonia. No pulmonary emboli. Labs EKG: Sinus rhythm. Baseline artifact. No acute changes. IMPRESSION/RECOMMENDATION: 1. Chest pain. Most likely noncardiac. No definite evidence of non-ST elevation AL. Most likely this is due to uncontrolled hypertension. In view of the patient's coronary artery disease. Will add Transderm Nitropatch. The son after my discussions and reassurances accepted the patient to be started on this topical nitrate. 2. Hypertension: Uncontrolled on admission. At present well controlled. Most likely this is due to noncompliance causing elevated/accelerated hypertension on admission. This also the reason that the patient had chest pain. 3. Coronary artery disease. History of coronary bypass graft surgery. Continue aspirin. Continue amlodipine and other antihypertensive including metoprolol. Continue statin. Add topical nitrates. 4. History of cerebrovascular accident x2. There is significant left-sided weakness with contractures due to prior CVA. 5. History of diabetes mellitus: We will need to discuss this with the son for further. Since this patient is not on any antidiabetic medications at home. 6. Hyperlipidemia: Continue statin. 7. COPD: Appears to be stable. 8. Most likely has early mild dementia. Would recommend maximizing the patient's medical treatment. The patient not a candidate for stress testing. He is also at high risk for cardiac catheterization, especially with the patient's symptoms of chest pain not being typical of or of angina or even atypical angina. Would recommend cardiac catheterization only if intractable anginal on very good medical therapy. Medical decision making is of high complexity. The case has been discussed including management plan with the attending hospitalist physician. Also discussed with the patient's son. If patient remains stable would recommend discharging the patient home/shelter on current medical therapy. Note 60 minutes spent on this patient with more than 50% of time spent in direct patient care.
[2019-02-10] MEDS ORDERED: CLONIDINE HCL 0.2 MG TABLET PO ONE (20:45)
[2019-02-10] MEDS ORDERED: HYDRALAZINE HCL INJ/PF 20 MG/1 ML SDV IV ONE (21:00)
[2019-02-10] MEDS: METOPROLOL TARTRATE 100 MG TABLET PO SCH (22:27)
[2019-02-10] MEDS: ATORVASTATIN CALCIUM 80 MG TABLET PO SCH (22:28)
[2019-02-10] MEDS: NORMAL SALINE 1000 ML 1,000 ML IV PRN (22:37)
[2019-02-10] MEDS: CLONIDINE HCL 0.1 MG TABLET PO SCH (23:56)
[2019-02-11] MEDS: HYDRALAZINE HCL 50 MG TABLET PO SCH ×3 (06:03→22:39)
[2019-02-11] MEDS ORDERED: (PENDING PHARMACY ID) (Amantadine Hcl [Amantadine] 100 MG) PO SCH (08:00)
[2019-02-11] MEDS: INSULIN LISPRO 100 UNIT/ML 3 ML VIAL SUBCUT SCH ×4 (09:13→22:39)
[2019-02-11] MEDS: ASPIRIN 81 MG TABLET, ENT COATED PO SCH (09:21)
[2019-02-11] MEDS: CLONIDINE HCL 0.1 MG TABLET PO SCH ×3 (09:21→22:39)
[2019-02-11] MEDS: AMANTADINE HCL 100 MG CAPSULE PO SCH ×2 (09:21→13:05)
[2019-02-11] MEDS: FAMOTIDINE 20 MG TABLET PO SCH ×2 (09:21→22:39)
[2019-02-11] MEDS: MULTIVITAMIN TABLET PO SCH (09:22)
[2019-02-11] MEDS: DOCUSATE SODIUM 100 MG CAPSULE PO SCH ×2 (09:22→17:07)
[2019-02-11] MEDS: AMLODIPINE BESYLATE 10 MG TABLET PO SCH (09:22)
[2019-02-11] MEDS: METOPROLOL TARTRATE 100 MG TABLET PO SCH ×2 (09:22→22:39)
[2019-02-11] MEDS: POLYETHYLENE GLYCOL 3350 POWDER 17 GM/1 PACKET PO SCH (09:22)
[2019-02-11] MEDS: ENOXAPARIN SODIUM INJ 40 MG/0.4 ML DISP.SYRIN SUBCUT SCH (09:22)
[2019-02-11] MEDS: NITROGLYCERIN 10 MG (0.4 MG/HR) PATCH.TD24 TD SCH (09:23)
[2019-02-11] MEDS: NORMAL SALINE 1000 ML 1,000 ML IV PRN ×2 (09:48→20:57)
--- NOTE | 2019-02-11 16:46 | PDOC PROGRESS REPORT ---
Subjective Progress Note for:: 02/11/19 Subjective:: LATRICE MAO is a 68 year old black male patient was past medical history of hypertension, congestive heart failure, COPD, type 2 diabetes mellitus coronary artery disease status post coronary artery bypass graft about 10 years ago and history of stroke with residual left-sided weakness and contracture, presented with chief complaint of chest pain. Patient is moved from [place] to [place] in order to stay at [facility]. His son was driving him back here from [place]. Enroute to [place] patient started to complain of chest pain which is localized to his substernal area nonradiating and about 1 out of 10 on pain scale at the time of my interview. Patient denies any palpitation or diaphoresis. He does not have any fever, cough, nausea, vomiting, abdominal pain, diarrhea or urinary complaints. His CT scan of the chest with contrast reported as no aortic dissection or aneurysm. No pneumonia. No PE. His blood work shows troponin of 0.040 next test 0.051 and the surgeon states is 0.062. Since patient has multiple risk factor for acute coronary syndrome I think is appropriate to admit him for observation and monitoring. 02/10/19: Patient seen propped up in bed and enjoying his lunch. He is awake alert and oriented. This morning patient is taken to cardiology need for nuclear stress test but patient not able to participate so the procedure consulted. Anaya evaluated the patient and he recommended medical manag ement only. location worker consulted for rehab placement. 02/11/2019: Patient seen propped up in bed. He is in sound sleep. No chest pain since admission. his blood pressure is in the hypertensive urgency range. Reason For Visit: CHEST PAIN Physical Exam Vital Signs: Temp Pulse Resp BP Pulse Ox 98.7 F 69 16 106/56 L 98 02/11/19 15:41 02/11/19 15:41 02/11/19 15:41 02/11/19 15:41 02/11/19 15:41 Intake & Output 02/10/19 02/11/19 02/12/19 06:59 06:59 06:59 Intake Total 1608 2170 1420 Balance 1608 2170 1420 Weight 88.4 kg 88.2 kg General appearance: PRESENT: no acute distress Head exam: PRESENT: atraumatic Respiratory exam: PRESENT: clear to auscultation sanchez. ABSENT: rales, rhonchi, wheezes Cardiovascular exam: PRESENT: RRR. ABSENT: diastolic murmur, rubs, systolic murmur Results Laboratory Results: 02/09/19 02:28 02/10/19 04:12 02/09/19 02/09/19 02/09/19 02:28 02:28 05:48 Creatine Kinase 128 CK-MB (CK-2) 3.12 Troponin I 0.040 0.051 02/09/19 02/09/19 02/09/19 09:46 15:52 21:57 Creatine Kinase CK-MB (CK-2) Troponin I 0.062 0.060 0.053 02/10/19 04:12 Creatine Kinase CK-MB (CK-2) Troponin I 0.053 Impressions: Chest X-Ray 02/09/19 01:28 IMPRESSION: Small obscuration-effusion of the left costophrenic angle. Chest/Abdomen CTA 02/09/19 01:57 IMPRESSION: No aortic dissection or aneurysm. No pulmonary embolus. No pneumonia. Assessment and Plan - Diagnosis (1) Hypertensive urgency Is this a current diagnosis for this admission?: Yes Plan: Patient has been on hydralazine, metoprolol and clonidine. The dose of his clonidine has been increased. (2) Chest pain Qualifiers: Chest pain type: other chest pain Qualified Code(s): R07.89 - Other chest pain; R07.8 - Other chest pain Is this a current diagnosis for this admission?: Yes Plan: Patient remained chest pain-free. Patient is not able to participate with stress test. (3) Congestive heart failure Qualifiers: Heart failure type: systolic Heart failure chronicity: chronic Qualified Code(s): I50.22 - Chronic systolic (congestive) heart failure Is this a current diagnosis for this admission?: Yes Plan: To his heart medications. (4) Hypertension Qualifiers: Hypertension type: essential hypertension Qualified Code(s): I10 - Essential (primary) hypertension Is this a current diagnosis for this admission?: Yes Plan: Continue his home medications. (5) COPD (chronic obstructive pulmonary disease) Qualifiers: Emphysema type: unspecified Is this a current diagnosis for this admission?: Yes Plan: I will put him on PRN bronchodilators. (6) Type 2 diabetes mellitus Is this a current diagnosis for this admission?: Yes Plan: We will continue his home medication. Sliding scale.
--- NOTE | 2019-02-11 21:41 | Progress Note ---
Provider Note Provider Note: CARDIOLOGY PROGRESS NOTE by Dr. Leydi Julien on 02/11/2019. SUBJECTIVE: The patient denies any chest pain or discomfort. There is no PND orthopnea or leg edema. There is no new or recurrence of TIA or CVA symptoms. There is no arrhythmia seen on the monitor. PHYSICAL EXAMINATION: The patient is well-built and well-nourished. At present in no acute distress. Selected Entries 02/11/19 00:03 Temperature 99.0 F Temperature Oral Source Pulse Rate 81 Respiratory 19 Rate Blood Pressure 180/100 H Blood Pressure 126 Mean BP Location Right Arm BP Position Supine O2 Sat by Pulse 100 Oximetry Oxygen Flow 2 Rate Oxygen Delivery Nasal Cannula Method HEAD: Is atraumatic normocephalic. EYES: Pupils are equal round regular reactive light accommodation. Extraocular movements are normal. There is no conjunctival pallor. There is no scleral icterus. ENT: Is negative. NECK: Is supple. There is no JVD. Carotids are equal there is no bruits. There is no lymphadenopathy. There is no goiter. There is no accessory muscle respiration use. Trachea central. LUNGS: Show diminished air entry prolonged expiratory expiration. There is no rhonchi rales or wheezing. There is no chest wall tenderness. There is hyperresonance on percussion. HEART: S1-S2 is heard. There is an S4 gallop present there is no S3 gallop there is no S4 gallop. There is a systolic murmur left sternal border and the apex there is no rub. ABDOMEN: Soft. Nontender there is no hepatospleno megaly bowel sounds are well heard. Extremities: Femorals are slightly diminished. There is no femoral bruits. Leg pulses are diminished. There is no pedal edema. 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 There is residual left-sided weakness with contractures of the upper and lower extremities. PSYCHIATRIC: The patient does not appear to be agitated or or anxious. 02/11/19 07:54 POC Glucose 104 IMPRESSION/RECOMMENDATION: 1. Chest pain. Most likely noncardiac. Resolved. 2. Hypertension: Uncontrolled. We will increase the patient's clonidine to 0.1 mg p.o. every 8 hours. Continue other antihypertensives. 3. Coronary artery disease. History of coronary bypass graft surgery. Continue aspirin. Continue amlodipine and other antihypertensive including metoprolol. Continue statin. Add topical nitrates. 4. History of cerebrovascular accident x2. There is significant left-sided weakness with contractures due to prior CVA. 5. History of diabetes mellitus: We will need to discuss this with the son for further. Since this patient is not on any antidiabetic medications at home. 6. Hyperlipidemia: Continue statin. 7. COPD: Appears to be stable. 8. Most likely has early mild dementia. Medical decision making is of high complexity, due to the decision making to increase the patient's antihypertensive dosage.. Medications reviewed. Medications adjusted management plan discussed with the attending physician on the case. 40 minutes spent on this patient with more than 50% of time spent in direct patient care. Will follow.
[2019-02-11] MEDS: ATORVASTATIN CALCIUM 80 MG TABLET PO SCH (22:39)
[2019-02-12] MEDS: HYDRALAZINE HCL 50 MG TABLET PO SCH ×3 (06:01→22:34)
[2019-02-12] MEDS: CLONIDINE HCL 0.1 MG TABLET PO SCH ×3 (06:01→22:34)
[2019-02-12] MEDS: NORMAL SALINE 1000 ML 1,000 ML IV PRN ×2 (07:06→17:11)
[2019-02-12] MEDS: ASPIRIN 81 MG TABLET, ENT COATED PO SCH (09:15)
[2019-02-12] MEDS: MULTIVITAMIN TABLET PO SCH (09:16)
[2019-02-12] MEDS: AMANTADINE HCL 100 MG CAPSULE PO SCH ×2 (09:16→13:08)
[2019-02-12] MEDS: NITROGLYCERIN 10 MG (0.4 MG/HR) PATCH.TD24 TD SCH (09:16)
[2019-02-12] MEDS: AMLODIPINE BESYLATE 10 MG TABLET PO SCH (09:16)
[2019-02-12] MEDS: FAMOTIDINE 20 MG TABLET PO SCH ×2 (09:16→22:34)
[2019-02-12] MEDS: DOCUSATE SODIUM 100 MG CAPSULE PO SCH ×2 (09:16→17:10)
[2019-02-12] MEDS: METOPROLOL TARTRATE 100 MG TABLET PO SCH ×2 (09:16→22:31)
[2019-02-12] MEDS: ENOXAPARIN SODIUM INJ 40 MG/0.4 ML DISP.SYRIN SUBCUT SCH (09:17)
[2019-02-12] MEDS: POLYETHYLENE GLYCOL 3350 POWDER 17 GM/1 PACKET PO SCH (09:17)
[2019-02-12] MEDS: INSULIN LISPRO 100 UNIT/ML 3 ML VIAL SUBCUT SCH ×4 (09:29→22:35)
--- NOTE | 2019-02-12 12:13 | PDOC PROGRESS REPORT ---
Subjective Progress Note for:: 02/12/19 Subjective:: LATRICE MAO is a 68 year old black male patient was past medical history of hypertension, congestive heart failure, COPD, type 2 diabetes mellitus coronary artery disease status post coronary artery bypass graft about 10 years ago and history of stroke with residual left-sided weakness and contracture, presented with chief complaint of chest pain. Patient is moved from [place] to [place] in order to stay [facility]. His son was driving him back here from [place]. Enroute to [place] patient started to complain of chest pain which is localized to his substernal area nonradiating and about 1 out of 10 on pain scale at the time of my interview. Patient denies any palpitation or diaphoresis. He does not have any fever, cough, nausea, vomiting, abdominal pain, diarrhea or urinary complaints. His CT scan of the chest with contrast reported as no aortic dissection or aneurysm. No pneumonia. No PE. His blood work shows troponin of 0.040 next test 0.051 and the surgeon states is 0.062. Since patient has multiple risk factor for acute coronary syndrome I think is appropriate to admit him for observation and monitoring. 02/10/19: Patient seen propped up in bed and enjoying his lunch. He is awake alert and oriented. This morning patient is taken to cardiology need for nuclear stress test but patient not able to participate so the procedure consulted. Anaya evaluated the patient and he recommended medical manag ement only. polysilicon preparation worker consulted for rehab placement. 02/11/2019: Patient seen propped up in bed. He is in sound sleep. No chest pain since admission. his blood pressure is in the hypertensive urgency range. 02/12/2019: No significant event overnight. Patient eats well and tolerates well. No nausea, fever or vomiting. His blood pressure is relatively well controlled. Reason For Visit: CHEST PAIN Physical Exam Vital Signs: Temp Pulse Resp BP Pulse Ox 98.4 F 64 20 156/88 H 100 02/12/19 07:35 02/12/19 07:35 02/12/19 04:03 02/12/19 07:35 02/12/19 07:35 Intake & Output 02/11/19 02/12/19 02/13/19 06:59 06:59 06:59 Intake Total 2170 2740 1000 Balance 2170 2740 1000 Weight 88.2 kg 88.7 kg General appearance: PRESENT: no acute distress Head exam: PRESENT: atraumatic Neck exam: ABSENT: carotid bruit, JVD, lymphadenopathy, thyromegaly Respiratory exam: PRESENT: clear to auscultation sanchez. ABSENT: rales, rhonchi, wheezes Neurological exam: PRESENT: alert, awake Results Laboratory Results: 02/09/19 02:28 02/10/19 04:12 02/09/19 02/09/19 02/09/19 02:28 02:28 05:48 Creatine Kinase 128 CK-MB (CK-2) 3.12 Troponin I 0.040 0.051 02/09/19 02/09/19 02/09/19 09:46 15:52 21:57 Creatine Kinase CK-MB (CK-2) Troponin I 0.062 0.060 0.053 02/10/19 04:12 Creatine Kinase CK-MB (CK-2) Troponin I 0.053 Impressions: Chest X-Ray 02/09/19 01:28 IMPRESSION: Small obscuration-effusion of the left costophrenic angle. Chest/Abdomen CTA 02/09/19 01:57 IMPRESSION: No aortic dissection or aneurysm. No pulmonary embolus. No pneumonia. Assessment and Plan - Diagnosis (1) Hypertensive urgency Is this a current diagnosis for this admission?: Yes Plan: Resolving (2) Chest pain Qualifiers: Chest pain type: other chest pain Qualified Code(s): R07.89 - Other chest pain; R07.8 - Other chest pain Is this a current diagnosis for this admission?: Yes Plan: Patient remained chest pain-free. Patient is not able to participate with stress test. (3) Congestive heart failure Qualifiers: Heart failure type: systolic Heart failure chronicity: chronic Qualified Code(s): I50.22 - Chronic systolic (congestive) heart failure Is this a current diagnosis for this admission?: Yes Plan: To his heart medications. (4) Hypertension Qualifiers: Hypertension type: essential hypertension Qualified Code(s): I10 - Essential (primary) hypertension Is this a current diagnosis for this admission?: Yes Plan: Continue his home medications. (5) COPD (chronic obstructive pulmonary disease) Qualifiers: Emphysema type: unspecified Is this a current diagnosis for this admission?: Yes Plan: I will put him on PRN bronchodilators. (6) Type 2 diabetes mellitus Is this a current diagnosis for this admission?: Yes Plan: We will continue his home medication. Sliding scale.
--- NOTE | 2019-02-12 21:44 | Progress Note ---
Provider Note Provider Note: CARDIOLOGY PROGRESS NOTE by Dr. Leydi Julien on 02/12/2019. SUBJECTIVE: The patient denies any further chest pain or discomfort. There is no shortness of breath or wheezing. There is no PND orthopnea or leg edema. There is no recurrence of TIA CVA symptoms. There is no atrial, or, ventricular arrhythmia seen on the monitor. The patient's blood pressure is well controlled. PHYSICAL EXAMINATION: The patient is well-built and well-nourished in no acute distress. Selected Entries 02/12/19 11:20 Temperature 98.1 F Temperature Oral Source Pulse Rate 69 Respiratory 22 H Rate Blood Pressure 124/77 Blood Pressure 92 Mean BP Location Right Arm BP Position Supine O2 Sat by Pulse 100 Oximetry Oxygen Flow 1.50 Rate Oxygen Delivery Nasal Cannula Method HEAD: Is atraumatic normocephalic. EYES: Pupils are equal round regular reactive light accommodation. Extraocular movements are normal. There is no conjunctival pallor. There is no scleral icterus. ENT: Is negative. NECK: Is supple. There is no JVD. Carotids are equal there is no bruits. There is no lymphadenopathy. There is no goiter. There is no accessory muscle respiration use. Trachea central. LUNGS: Show diminished air entry prolonged expiratory expiration. There is no rhonchi rales or wheezing. There is no chest wall tenderness. There is hyperresonance on percussion. HEART: S1-S2 is heard. There is an S4 gallop present there is no S3 gallop there is no S4 gallop. There is a systolic murmur left sternal border and the apex there is no rub. ABDOMEN: Soft. Nontender there is no hepatospleno megaly bowel sounds are well heard. Extremities: Femorals are slightly diminished. There is no femoral bruits. Leg pulses are diminished. There is no pedal edema. 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 There is residual left-sided weakness with contractures of the upper and lower extremities. PSYCHIATRIC: The patient does not appear to be agitated or or anxious. Labs- All tests 24 hr 02/12/19 02/12/19 02/12/19 07:37 11:18 15:50 POC Glucose 115 H 133 H 106 02/12/19 21:23 POC Glucose 127 H IMPRESSION/RECOMMENDATION: 1. Chest pain. Most likely noncardiac. Resolved. 2. Hypertension: No blood pressures well controlled on current medication. Continue the same 3. Coronary artery disease. History of coronary bypass graft surgery. Continue aspirin. Continue amlodipine and other antihypertensive including metoprolol. Continue statin. Continue topical nitrates. 4. History of cerebrovascular accident x2. There is significant left-sided weakness with contractures due to prior CVA. 5. History of diabetes mellitus: We will need to discuss this with the son for further. Since this patient is not on any antidiabetic medications at home. 6. Hyperlipidemia: Continue statin. 7. COPD: Appears to be stable. 8. Most likely has early mild dementia. Medications reviewed. Management plan discussed with the attending physician on the case. Patient's cardiac status is stable. Will sign off. If the patient desires the patient can follow-up with me in the office. Will sign off the case as discussed with attending physician. Medical decision making is of moderate complexity. 40 minutes spent on this patient more than 50% of time spent in direct patient care.
[2019-02-12] MEDS: ATORVASTATIN CALCIUM 80 MG TABLET PO SCH (22:31)
[2019-02-13] MEDS: NORMAL SALINE 1000 ML 1,000 ML IV PRN ×2 (03:46→16:31)
[2019-02-13] MEDS: HYDRALAZINE HCL 50 MG TABLET PO SCH ×3 (05:23→22:44)
[2019-02-13] MEDS: CLONIDINE HCL 0.1 MG TABLET PO SCH ×3 (05:24→22:43)
[2019-02-13] MEDS: INSULIN LISPRO 100 UNIT/ML 3 ML VIAL SUBCUT SCH ×4 (09:02→22:44)
[2019-02-13] MEDS: MULTIVITAMIN TABLET PO SCH (09:06)
[2019-02-13] MEDS: METOPROLOL TARTRATE 100 MG TABLET PO SCH ×2 (09:06→22:44)
[2019-02-13] MEDS: FAMOTIDINE 20 MG TABLET PO SCH ×2 (09:06→22:44)
[2019-02-13] MEDS: ENOXAPARIN SODIUM INJ 40 MG/0.4 ML DISP.SYRIN SUBCUT SCH (09:07)
[2019-02-13] MEDS: AMLODIPINE BESYLATE 10 MG TABLET PO SCH (09:07)
[2019-02-13] MEDS: AMANTADINE HCL 100 MG CAPSULE PO SCH ×2 (09:07→13:12)
[2019-02-13] MEDS: ASPIRIN 81 MG TABLET, ENT COATED PO SCH (09:07)
[2019-02-13] MEDS: NITROGLYCERIN 10 MG (0.4 MG/HR) PATCH.TD24 TD SCH (09:07)
[2019-02-13] MEDS: DOCUSATE SODIUM 100 MG CAPSULE PO SCH ×2 (09:08→17:20)
[2019-02-13] MEDS: POLYETHYLENE GLYCOL 3350 POWDER 17 GM/1 PACKET PO SCH (09:09)
--- NOTE | 2019-02-13 12:16 | PDOC PROGRESS REPORT ---
Subjective Progress Note for:: 02/13/19 Subjective:: LATRICE MAO is a 68 year old black male patient was past medical history of hypertension, congestive heart failure, COPD, type 2 diabetes mellitus coronary artery disease status post coronary artery bypass graft about 10 years ago and history of stroke with residual left-sided weakness and contracture, presented with chief complaint of chest pain. Patient is moved from [place] to [place] in order to stay at [facility]. His son was driving him back here from [place]. Enroute to [place] patient started to complain of chest pain which is localized to his substernal area nonradiating and about 1 out of 10 on pain scale at the time of my interview. Patient denies any palpitation or diaphoresis. He does not have any fever, cough, nausea, vomiting, abdominal pain, diarrhea or urinary complaints. His CT scan of the chest with contrast reported as no aortic dissection or aneurysm. No pneumonia. No PE. His blood work shows troponin of 0.040 next test 0.051 and the surgeon states is 0.062. Since patient has multiple risk factor for acute coronary syndrome I think is appropriate to admit him for observation and monitoring. 02/10/19: Patient seen propped up in bed and enjoying his lunch. He is awake alert and oriented. This morning patient is taken to cardiology need for nuclear stress test but patient not able to participate so the procedure consulted. Anaya evaluated the patient and he recommended medical manag ement only. child welfare worker consulted for rehab placement. 02/11/2019: Patient seen propped up in bed. He is in sound sleep. No chest pain since admission. his blood pressure is in the hypertensive urgency range. 02/12/2019: No significant event overnight. Patient eats well and tolerates well. No nausea, fever or vomiting. His blood pressure is relatively well controlled. 02/13/2019: Patient seen resting in bed comfortably. He is awake alert. He responds appropriately to verbal stimuli. He is potential discharge to [place] tomorrow. Reason For Visit: NSTEMI Physical Exam Vital Signs: Temp Pulse Resp BP Pulse Ox 98.0 F 73 16 142/85 H 96 02/13/19 03:12 02/13/19 07:00 02/13/19 03:12 02/13/19 03:12 02/13/19 03:12 Intake & Output 02/12/19 02/13/19 02/14/19 06:59 06:59 06:59 Intake Total 2740 4431 Balance 2740 4431 Weight 88.7 kg 88.7 kg General appearance: PRESENT: no acute distress Respiratory exam: PRESENT: clear to auscultation sanchez. ABSENT: rales, rhonchi, wheezes Neurological exam: PRESENT: alert, awake Results Laboratory Results: 02/09/19 02:28 02/10/19 04:12 02/09/19 02/09/19 02/09/19 02:28 02:28 05:48 Creatine Kinase 128 CK-MB (CK-2) 3.12 Troponin I 0.040 0.051 02/09/19 02/09/19 02/09/19 09:46 15:52 21:57 Creatine Kinase CK-MB (CK-2) Troponin I 0.062 0.060 0.053 02/10/19 04:12 Creatine Kinase CK-MB (CK-2) Troponin I 0.053 Impressions: Chest X-Ray 02/09/19 01:28 IMPRESSION: Small obscuration-effusion of the left costophrenic angle. Chest/Abdomen CTA 02/09/19 01:57 IMPRESSION: No aortic dissection or aneurysm. No pulmonary embolus. No pneumonia. Assessment and Plan - Diagnosis (1) Hypertensive urgency Is this a current diagnosis for this admission?: Yes Plan: Resolving. (2) Chest pain Qualifiers: Chest pain type: other chest pain Qualified Code(s): R07.89 - Other chest pain; R07.8 - Other chest pain Is this a current diagnosis for this admission?: Yes Plan: Has resolved (3) Congestive heart failure Qualifiers: Heart failure type: systolic Heart failure chronicity: chronic Qualified Code(s): I50.22 - Chronic systolic (congestive) heart failure Is this a current diagnosis for this admission?: Yes Plan: To his heart medications. (4) Hypertension Qualifiers: Hypertension type: essential hypertension Qualified Code(s): I10 - Essential (primary) hypertension Is this a current diagnosis for this admission?: Yes Plan: Continue his home medications. (5) COPD (chronic obstructive pulmonary disease) Qualifiers: Emphysema type: unspecified Is this a current diagnosis for this admission?: Yes Plan: I will put him on PRN bronchodilators. (6) Type 2 diabetes mellitus Is this a current diagnosis for this admission?: Yes Plan: We will continue his home medication. Sliding scale.
[2019-02-13] MEDS: ATORVASTATIN CALCIUM 80 MG TABLET PO SCH (22:44)
[2019-02-14] MEDS: HYDRALAZINE HCL 50 MG TABLET PO SCH ×2 (05:25→14:23)
[2019-02-14] MEDS: CLONIDINE HCL 0.1 MG TABLET PO SCH ×2 (05:25→14:22)
[2019-02-14] MEDS: NORMAL SALINE 1000 ML 1,000 ML IV PRN (05:27)
[2019-02-14] MEDS: INSULIN LISPRO 100 UNIT/ML 3 ML VIAL SUBCUT SCH ×3 (08:29→16:36)
[2019-02-14] MEDS: AMANTADINE HCL 100 MG CAPSULE PO SCH ×2 (08:45→12:56)
[2019-02-14] MEDS: ASPIRIN 81 MG TABLET, ENT COATED PO SCH (08:45)
[2019-02-14] MEDS: FAMOTIDINE 20 MG TABLET PO SCH (09:31)
[2019-02-14] MEDS: DOCUSATE SODIUM 100 MG CAPSULE PO SCH (09:31)
[2019-02-14] MEDS: METOPROLOL TARTRATE 100 MG TABLET PO SCH (09:31)
[2019-02-14] MEDS: AMLODIPINE BESYLATE 10 MG TABLET PO SCH (09:32)
[2019-02-14] MEDS: MULTIVITAMIN TABLET PO SCH (09:32)
[2019-02-14] MEDS: POLYETHYLENE GLYCOL 3350 POWDER 17 GM/1 PACKET PO SCH (09:33)
[2019-02-14] MEDS: NITROGLYCERIN 10 MG (0.4 MG/HR) PATCH.TD24 TD SCH (09:34)
[2019-02-14] MEDS: ENOXAPARIN SODIUM INJ 40 MG/0.4 ML DISP.SYRIN SUBCUT SCH (09:35)
--- NOTE | 2019-02-14 13:31 | PDOC TRANSFER SUMMARY ---
General - Admit/Disc Date/PCP Admission Date/Primary Care Provider: 02/09/19 15:57 Discharge Date: 02/14/19 - Discharge Diagnosis (1) Hypertensive urgency Is this a current diagnosis for this admission?: Yes (2) Chest pain Is this a current diagnosis for this admission?: Yes (3) Congestive heart failure Is this a current diagnosis for this admission?: Yes (4) Hypertension Is this a current diagnosis for this admission?: Yes (5) COPD (chronic obstructive pulmonary disease) Is this a current diagnosis for this admission?: Yes (6) Type 2 diabetes mellitus Is this a current diagnosis for this admission?: Yes - Additional Information Resuscitation Status: Full Code Home Medications: Acetaminophen [Tylenol 325 mg Tablet] 650 mg PO Q6HP PRN 02/09/19 Amantadine HCl [Amantadine] 100 mg PO BID@0800,1200 02/09/19 Amlodipine Besylate [Norvasc 10 mg Tablet] 10 mg PO DAILY 02/09/19 Aspirin [Adult Low Dose Aspirin EC] 81 mg PO QAM 02/09/19 Atorvastatin Calcium [Lipitor 80 mg Tablet] 80 mg PO QHS 02/09/19 Baclofen [Baclofen 20 mg Tablet] 30 mg PO TIDP PRN 02/09/19 Clonidine HCl [Catapres 0.1 mg Tablet] 0.1 mg PO BID 02/09/19 Hydralazine HCl 100 mg PO TID 02/09/19 Ibuprofen [Motrin 400 mg Tablet] 400 mg PO DAILYP PRN 02/09/19 Ipratropium/Albuterol Sulfate [Duoneb 3 ml Ampul] 3 ml NEB RTQ6HP PRN 02/09/19 Metoprolol Tartrate [Lopressor 100 mg Tablet] 100 mg PO BID 02/09/19 Multivitamin [Multiple Vitamins] 1 tab PO DAILY 02/09/19 Polyethylene Glycol 3350 [Miralax Powder 17 gm/Packet] 17 gm PO DAILY 02/09/19 History of Present Illness Admission Date/PCP: 02/09/19 15:57 History of Present Illness: LATRICE MAO is a 68 year old black male patient was past medical history of hypertension, congestive heart failure, COPD, type 2 diabetes mellitus coronary artery disease status post coronary artery bypass graft about 10 years ago and history of stroke with residual left-sided weakness and contracture, presented with chief complaint of chest pain. Patient is moved from [place] to [place] in order to stay at [facility]. His son was driving him back here from [place]. Enroute to [place] patient started to complain of chest pain which is localized to his substernal area nonradiating and about 1 out of 10 on pain scale at the time of my interview. Patient denies any palpitation or diaphoresis. He does not have any fever, cough, nausea, vomiting, abdominal pain, diarrhea or urinary complaints. His CT scan of the chest with contrast reported as no aortic dissection or aneurysm. No pneumonia. No PE. His blood work shows troponin of 0.040 next test 0.051 and the surgeon states is 0.062. Since patient has multiple risk factor for acute coronary syndrome I think is appropriate to admit him for observation and monitoring. Hospital Course Hospital Course: LATRICE MAO is a 68 year old black male patient was past medical history of hypertension, congestive heart failure, COPD, type 2 diabetes mellitus coronary artery disease status post coronary artery bypass graft about 10 years ago and history of stroke with residual left-sided weakness and contracture, presented with chief complaint of chest pain. Patient is moved from [place] to [place] in order to stay at [facility]. His son was driving him back here from [place]. Enroute to [place] patient started to complain of chest pain which is localized to his substernal area nonradiating and about 1 out of 10 on pain scale at the time of my interview. Patient denies any palpitation or diaphoresis. He does not have any fever, cough, nausea, vomi ting, abdominal pain, diarrhea or urinary complaints. His CT scan of the chest with contrast reported as no aortic dissection or aneurysm. No pneumonia. No PE. His blood work shows troponin of 0.040 next test 0.051 and the surgeon states is 0.062. Since patient has multiple risk factor for acute coronary syndrome I think is appropriate to admit him for observation and monitoring. 02/10/19: Patient seen propped up in bed and enjoying his lunch. He is awake alert and oriented. This morning patient is taken to cardiology need for nuclear stress test but patient not able to participate so the procedure consulted. Anaya evaluated the patient and he recommended medical management only. color drum worker consulted for rehab placement. 02/11/2019: Patient seen propped up in bed. He is in sound sleep. No chest pain since admission. his blood pressure is in the hypertensive urgency range. 02/12/2019: No significant event overnight. Patient eats well and tolerates well. No nausea, fever or vomiting. His blood pressure is relatively well controlled. 02/13/2019: Patient seen resting in bed comfortably. He is awake alert. He responds appropriately to verbal stimuli. He is potential discharge to [facility] tomorrow. 02/14/2019: Patient seen propped up in bed. He is awake alert. He is not in pain or distress. His blood pressure is well controlled. As per Dr. Julien this patient is not a candidate for cardiac stress test or any invasive cardiac intervention. As none NSTEMI has been managed medically. Patient is going to be transferred to [facility] skilled nursing today. Physical Exam Vital Signs: Temp Pulse Resp BP Pulse Ox 99.3 F 80 16 149/88 H 94 02/14/19 11:01 02/14/19 11:01 02/14/19 11:01 02/14/19 11:01 02/14/19 11:01 Intake & Output 02/13/19 02/14/19 02/15/19 06:59 06:59 06:59 Intake Total 4431 2746 Balance 4431 2746 Weight 88.7 kg 88.7 kg General appearance: PRESENT: no acute distress Head exam: PRESENT: atraumatic Neck exam: ABSENT: carotid bruit, JVD, lymphadenopathy, thyromegaly Respiratory exam: PRESENT: clear to auscultation sanchez. ABSENT: rales, rhonchi, wheezes Cardiovascular exam: PRESENT: irregular rhythm Neurological exam: PRESENT: alert, awake Results Laboratory Results: 02/09/19 02:28 02/10/19 04:12 02/09/19 02/09/19 02/09/19 02:28 02:28 05:48 Creatine Kinase 128 CK-MB (CK-2) 3.12 Troponin I 0.040 0.051 02/09/19 02/09/19 02/09/19 09:46 15:52 21:57 Creatine Kinase CK-MB (CK-2) Troponin I 0.062 0.060 0.053 02/10/19 04:12 Creatine Kinase CK-MB (CK-2) Troponin I 0.053 Impressions: Chest X-Ray 02/09/19 01:28 IMPRESSION: Small obscuration-effusion of the left costophrenic angle. Chest/Abdomen CTA 02/09/19 01:57 IMPRESSION: No aortic dissection or aneurysm. No pulmonary embolus. No pneumonia. Qualifiers - * PATIENT BEING DISCHARGED WITH ANY OF THE FOLLOWING DIAGNOSIS: No Acute Heart Failure - Is this a Heart Failure Patient?: No LVEF < 40%?: No- if no continue to question #3 3. Anticoagulant therapy for permanect/persistent/paraoxysmal Afib or Aflutter: N/A
[2019-02-14 17:38] VITALS: BP 146/95
== END 2019-02-14 17:38 | DRG 313 ==
LOC: ER 01:04 → EH 11:25 → OBSVTOIN 15:57 → 5 16:33
PROVIDERS: ADMIT Internal Medicine; ATTEND Internal Medicine
DX: R07.89 Other chest pain (principal); I69.354 Hemiplegia and hemiparesis following cerebral infarction affecting left non-dominant side; I50.22 Chronic systolic (congestive) heart failure; I25.10 Atherosclerotic heart disease of native coronary artery without angina pectoris; J44.9 Chronic obstructive pulmonary disease, unspecified; E78.5 Hyperlipidemia, unspecified; I11.0 Hypertensive heart disease with heart failure; F03.90 Unspecified dementia, unspecified severity, without behavioral disturbance, psychotic disturbance, mood disturbance, and anxiety; I16.0 Hypertensive urgency; E66.9 Obesity, unspecified
CPT/HCPCS: 36415; 71045; 71275; 80048; 80053; 82550; 82553; 82962; 84484; 85025; 93005; 93010; 96361; 96372; 96374; 99285; G0378; J0360; J1650; J1815; J3490; J7030

== ENCOUNTER 2020-08-23 10:30 | Inpatient (IN) | payer MEDICARE, MEDICAID ==
[2020-08-23] MEDS ORDERED: DILTIAZEM HCL INJ 25 MG/5 ML VIAL IV ONE ×2 (10:49→12:26)
[2020-08-23 11:21] LABS: VENOUS BLOOD HCO3 25.2 mmol/L (20-32); VENOUS BLOOD PCO2 42.8 mmHg (35-63); VENOUS BLOOD PH 7.39 (7.30-7.42)
[2020-08-23 11:23] LABS: HEMATOCRIT 46.9 % (37.9-51.0); HEMOGLOBIN 15.3 g/dL (13.5-17.0); MEAN CORPUSCULAR HEMOGLOBIN 26.8 pg (27.0-33.4); MEAN CORPUSCULAR HGB CONC 32.5 g/dL (32.0-36.0); MEAN CORPUSCULAR VOLUME 82 fl (80-97); PLATELET COUNT 219 10^3/uL (150-450); RED CELL DISTRIBUTION WIDTH 16.9 % (11.5-14.0); WHITE BLOOD COUNT 8.3 10^3/uL (4.0-10.5)
[2020-08-23 11:25] LABS: INTERNATIONAL RATION (INR) 1.06
--- NOTE | 2020-08-23 11:27 | ER Document Report ---
ED General - General Chief Complaint: Fever Stated Complaint: SHORTNESS OF BREATH Time Seen by Provider: 08/23/20 10:48 Primary Care Provider: GRAHAM CABRAL MD [Primary Care Provider] - Follow up as needed TRAVEL OUTSIDE OF THE [place] IN LAST 30 DAYS: No - HPI Notes: Patient is a 69-year-old male sent into the emergency department for evaluation by primary [facility]pc. He is an extremely poor historian. Evidently EMS was initially called for him being unresponsive with a heart rate of 30. Upon arrival EMS found him to be fully responsive with a heart rate of 150. The p atient denies any pain. He states perhaps he may be a little bit short of breath. He has had a minimal cough. Otherwise he denies any other acute complaints or concerns. He was unaware of any fever, he was found to have a temperature on EMS arrival. - Related Data Allergies/Adverse Reactions: No Known Allergies Allergy (Unverified 02/09/19 02:04) Past Medical History - General Information source: Patient, Outside Facility Records - Social History Smoking Status: Never Smoker Family History: Reviewed & Not Pertinent Patient has homicidal ideation: No - Past Medical History Cardiac Medical History: Reports: Hx Congestive Heart Failure, Hx Coronary A rtery Disease - Status post CABG, Hx Hypercholesterolemia, Hx Hypertension Pulmonary Medical History: Reports: Hx COPD Neurological Medical History: Reports: Hx Cerebrovascular Accident Endocrine Medical History: Reports: Hx Diabetes Mellitus Type 1 Renal/ Medical History: Denies: Hx Peritoneal Dialysis Psychiatric Medical History: Denies: Hx Depression Past Surgical History: Reports: Hx Coronary Artery Bypass Graft Review of Systems - Review of Systems Constitutional: See HPI EENT: No symptoms reported Cardiovascular: No symptoms reported Respiratory: See HPI Gastrointestinal: No symptoms reported Genitourinary: No symptoms reported Musculoskeletal: No symptoms reported Skin: No symptoms reported Neurological/Psychological: No symptoms reported Physical Exam - Vital signs Vitals: Resp 32 H 08/23/20 10:32 - Notes Notes: This is a 69-year-old male who appears his stated age, no acute distress. Vital signs reviewed, please refer to chart. Head is normocephalic, atraumatic. Pupils equal round, reactive to light. Neck is supple without meningismus. Heart is tachycardic, irregularly irregular. Lungs reveal crackles at the left base. Abdomen is soft, nontender, normoactive bowel sounds throughout. Extremities without cyanosis, clubbing. 2+ pitting edema at the ankles. Posterior calves are nontender. Peripheral pulses are equal. Skin is warm and dry. Patient is awake, alert, cooperative examiner. He is contracture of the left upper extremity with deficits from previous CVA. Course - Re-evaluation Re-evalutation: 08/23/20 11:32 Patient is a 69-year-old male who presents to the emergency department. Unfortunately the history is extremely convoluted. The patient has a history of COPD and was evidently on a nonrebreather at the fpc upon EMS arrival. I do not know his baseline mental status or lung exam. The patient is not a good historian. He is in fact febrile with rapid A. fib on the monitor. His blood pressures were borderline. I do have a concern but sepsis was responsible for his elevated heart rate as well, so decision was made to just bolused with Cardizem rather than continuous drip to keep his cardiac output up. Sepsis work-up including troponin was ordered. Rapid Covid ordered and pending. ABG ordered as well. He is oxygenating well, heart rate has been between 95 and 112 after the push dose Cardizem. Awaiting for the results, we will continue to monitor. 08/23/20 12:08 Patient's heart rate did well after the Cardizem for some time, but then his heart rate went back up to the 140s. His pressure is still holding, decision was made to institute a Cardizem drip. I am still awaiting read of his chest x- ray, but I do not see any obvious infiltrates. He does have a significant leukocytosis. I am unsure as to whether or not his low-grade fever is secondary to perhaps some atelectasis. He does have an elevated proBNP, signs of acute kidney injury. Patient has a significant stroke risk with his atrial fibri llation, will medicate with 1 dose of Lovenox. Awaiting remainder of his labs to return, will contact medicine for admission. 08/23/20 13:[address] Vela, she will come and evaluate the patient for admission. I discussed anticoagulation with her, she states she will handle this order at this time. Repeat EKG has been requested to verify that he is in actual A. fib and this has been ordered. 08/23/20 13:54 Dr. Vela will accept the patient to [facility]. Patient's heart rate has been betw een 95 and 110 on the Cardizem drip. Blood pressure currently 114/93, no hypotensive episodes. - Vital Signs Vital signs: Temp Pulse Resp BP Pulse Ox 99.0 F 19 111/78 96 08/23/20 11:03 08/23/20 12:46 08/23/20 12:46 08/23/20 12:46 - Laboratory Results Result Diagrams: 08/23/20 10:43 08/23/20 10:43 Laboratory Results Interpreted: 08/23/20 08/23/20 08/23/20 10:43 10:43 10:43 RBC 5.70 H MCH 26.8 L RDW 16.9 H Monocytes % (Manual) 15 H Carbonic Acid ABG pH ABG pCO2 ABG Total CO2 BUN 32 H Creatinine 2.28 H Est GFR ( Amer) 35 L Est GFR (MDRD) Non-Af 29 L Glucose 114 H NT-Pro-B Natriuret Pep 9060 H 08/23/20 11:55 RBC MCH RDW Monocytes % (Manual) Carbonic Acid 0.89 L ABG pH 7.48 H ABG pCO2 29.6 L ABG Total CO2 22.2 L BUN Creatinine Est GFR ( Amer) Est GFR (MDRD) Non-Af Glucose NT-Pro-B Natriuret Pep Critical Laboratory Results Reviewed: No Critical Results - Radiology Results Radiology Results Interpreted: 08/23/20 13:05 Chest X-Ray 08/23/20 10:48 IMPRESSION: NO ACUTE RADIOGRAPHIC FINDING IN THE CHEST. Critical Radiology Results Reviewed: No Critical Results - EKG Interpretation by Me Additional EKG results interpreted by me: 08/23/20 11:33 7-year-old fib/flutter with a rate of 157 bpm. Left axis deviation. Nonspecific ST changes in lateral T wave inversions/ST depression consistent with likely LVH with strain. These were all changes from prior study. Critical Care Note - Critical Care Note Total time excluding time spent on procedures (mins): 20 Discharge - Discharge Clinical Impression: Rapid atrial fibrillation, Acute kidney injury, COVID-19 Fever Qualifiers: Fever type: due to other condition Qualified Code(s): R50.81 - Fever presenting with conditions classified elsewhere Condition: Stable Disposition: ADMITTED INPATIENT Admitting Provider: Mirian (Hospitalist) Unit Admitted: IMCU Referrals: GRAHAM CABRAL MD [Primary Care Provider] - Follow up as needed
[2020-08-23 11:44] LABS: ALBUMIN 3.9 g/dL (3.5-5.0); ALKALINE PHOSPHATASE 95 U/L (38-126); ANION GAP 10 (5-19); ASPARTATE AMINO TRANSFERASE 29 U/L (17-59); BILIRUBIN,DIRECT 0.2 mg/dL (0.0-0.4); BILIRUBIN,TOTAL 0.5 mg/dL (0.2-1.3); BLOOD UREA NITROGEN 32 mg/dL (7-20); CALCIUM 9.6 mg/dL (8.4-10.2); CARBON DIOXIDE 25 mmol/L (22-30); CHLORIDE 107 mmol/L (98-107); GLUCOSE 114 mg/dL (75-110); POTASSIUM 4.7 mmol/L (3.6-5.0); TOTAL PROTEIN 7.9 g/dL (6.3-8.2)
[2020-08-23 11:53] LABS: ABSOLUTE LYMPHOCYTES# (MANUAL) 1.8 10^3/uL (0.5-4.7); ABSOLUTE MONOCYTES # (MANUAL) 1.2 10^3/uL (0.1-1.4); BASOPHILS % (MANUAL) 0 % (0-2); EOSINOPHILS % (MANUAL) 0 % (0-6); LYMPHOCYTES % (MANUAL) 22 % (13-45); MONOCYTES % (MANUAL) 15 % (3-13); SEGMENTED NEUTROPHILS % (MAN) 63 % (42-78); TOTAL CELLS COUNTED 100
--- NOTE | 2020-08-23 11:53 | EKG REPORT ---
SEVERITY:- ABNORMAL ECG - SUPRAVENTRICULAR TACHYCARDIA PROBABLE LVH WITH SECONDARY REPOL ABNRM : Confirmed by: Tj Braxton MD 23-Aug-2020 11:53:05
[2020-08-23 11:54] LABS: ANISOCYTOSIS 1+; POLYCHROMASIA SLIGHT
[2020-08-23 11:55] LABS: PLATELET CLUMPS PRESENT; PLATELET COMMENT ADEQUATE
[2020-08-23 11:57] LABS: TROPONIN I 0.106 ng/mL
[2020-08-23 12:07] LABS: ARTERIAL BLOOD H2CO3 0.89 mmol/L (1.05-1.35); ARTERIAL BLOOD HCO3 21.3 mmol/L (20-24); ARTERIAL BLOOD O2 SATURATION 97.7 % (94-98); ARTERIAL BLOOD PCO2 29.6 mmHg (35-45); ARTERIAL BLOOD PH 7.48 (7.35-7.45); ARTERIAL BLOOD PO2 93.8 mmHg (80-100); ARTERIAL BLOOD TOTAL CO2 22.2 mmol/L (23-27)
[2020-08-23 12:08] LABS: ARTERIAL BLOOD FIO2 2L
--- NOTE | 2020-08-23 12:14 | RADIOLOGY REPORT (SQ) ---
EXAM DESCRIPTION: CHEST SINGLE VIEW IMAGES COMPLETED DATE/TIME: 08/23/2020 11:13 am REASON FOR STUDY: dyspnea, fever COMPARISON: 02/09/2019 EXAM PARAMETERS: NUMBER OF VIEWS: One view. TECHNIQUE: Single frontal radiographic view of the chest acquired. RADIATION DOSE: NA LIMITATIONS: None. FINDINGS: LUNGS AND PLEURA: No opacities, masses or pneumothorax. No pleural effusion. MEDIASTINUM AND HILAR STRUCTURES: No masses. Contour normal. HEART AND VASCULAR STRUCTURES: Heart normal in size. Normal vasculature. BONES: No acute findings. HARDWARE: Sternotomy wires. OTHER: No other significant finding. IMPRESSION: NO ACUTE RADIOGRAPHIC FINDING IN THE CHEST. TECHNICAL DOCUMENTATION: JOB ID: [id number] 2010 [email or web address]- All Rights Reserved Reading location - IP/workstation name: [email or web address]
[2020-08-23] MEDS: DILTIAZEM HCL/D5W 125 MG/125 ML RTUINJ IV PRN (12:24)
[2020-08-23] MEDS ORDERED: METOPROLOL TARTRATE 100 MG TABLET PO ONE (13:06)
--- NOTE | 2020-08-23 15:40 | EKG REPORT ---
SEVERITY:- ABNORMAL ECG - ATRIAL FIBRILLATION INCOMPLETE LEFT BUNDLE BRANCH BLOCK PROBABLE LVH WITH SECONDARY REPOL ABNRM : Confirmed by: Tj Braxton MD 23-Aug-2020 15:39:20
[2020-08-23] MEDS ORDERED: ACETAMINOPHEN 325 MG TABLET PO PRN (17:25)
[2020-08-23] MEDS ORDERED: MAG HYDROX/AL HYDROX/SIMETH SUSP 30 ML UDCUP PO PRN (17:25)
[2020-08-23] MEDS ORDERED: ONDANSETRON HCL INJ/PF 4 MG/2 ML SDV IV PRN (17:25)
[2020-08-23] MEDS ORDERED: AZITHROMYCIN 250 MG TABLET PO ONE (17:30)
--- NOTE | 2020-08-23 18:02 | PDOC H&P ---
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 Patient is a poor history due to dementia. Per ED physician, Dr. Zapata: "Evidently EMS was initially called for him being unresponsive with a heart rate of 30. Upon arrival EMS found him to be fully responsive with a heart rate of 150." In the ED, VS were notable for tachycardia, hypotension, tachypnea and hypoxem ia. He was placed on NC and started on a diltiazem drip. EKG showed AFRVR without obvious ischemic changes. CXR showed no effusions, infiltrates or other findings. Labs were notable for elevated BUN/Cr and troponin of 0.10. Patient adamantly denies chest pain or pressure. He tells me that his SOB has resolved since he's been in the ED. His only concern is that he is thirsty. Per [facility] records, he was last tested for COVID-19 on 08/20 and his test was negative at that time. Here, in the ED, he tested positive. Past Medical History Cardiac Medical History: Reports: Atrial Fibrillation, Congestive Heart Failure, Coronary Artery Disease - Status post CABG, Hyperlipidema, Hypertension Pulmonary Medical History: Reports: Chronic Obstructive Pulmonary Disease (COPD) Neurological Medical History: Reports: Ischemic CVA Endocrine Medical History: Reports: Diabetes Mellitus Type 2 Psychiatric Medical History: Denies: Depression Past Surgical History Past Surgical History: Reports: Coronary Artery Bypass Graft Social History Information Source: Relative Lives with: Group Home Smoking Status: Never Smoker Frequency of Alcohol Use: None Hx Recreational Drug Use: No Drugs: None Hx Prescription Drug Abuse: No - Advance Directive Resuscitation Status: Full Code Family History Family History: Reviewed & Not Pertinent Parental Family History Reviewed: Yes Children Family History Reviewed: Yes Sibling(s) Family History Reviewed.: Yes Medication/Allergy Home Medications: Acetaminophen [Tylenol 325 mg Tablet] 650 mg PO Q6HP PRN 02/09/19 Amantadine HCl [Amantadine] 100 mg PO BID@0800,1200 02/09/19 Amlodipine Besylate [Norvasc 10 mg Tablet] 10 mg PO DAILY 02/09/19 Aspirin [Adult Low Dose Aspirin EC] 81 mg PO QAM 02/09/19 Atorvastatin Calcium [Lipitor 80 mg Tablet] 80 mg PO QHS 02/09/19 Baclofen [Baclofen 20 mg Tablet] 30 mg PO TIDP PRN 02/09/19 Clonidine HCl [Catapres 0.1 mg Tablet] 0.1 mg PO BID 02/09/19 Hydralazine HCl 100 mg PO TID 02/09/19 Ibuprofen [Motrin 400 mg Tablet] 400 mg PO DAILYP PRN 02/09/19 Ipratropium/Albuterol Sulfate [Duoneb 3 ml Ampul] 3 ml NEB RTQ6HP PRN 02/09/19 Metoprolol Tartrate [Lopressor 100 mg Tablet] 100 mg PO BID 02/09/19 Multivitamin [Multiple Vitamins] 1 tab PO DAILY 02/09/19 Polyethylene Glycol 3350 [Miralax Powder 17 gm/Packet] 17 gm PO DAILY 02/09/19 Isosorbide Mononitrate [Imdur 30 mg Tablet.er] 30 mg PO DAILY #30 tab.er.24h 02/14/19 Allergies/Adverse Reactions: No Known Allergies Allergy (Unverified 02/09/19 02:04) Review of Systems ROS unobtainable: Due to mental status Physical Exam Vital Signs: Temp Pulse Resp BP Pulse Ox 97.5 F 18 118/94 H 95 08/23/20 14:46 08/23/20 17:01 08/23/20 17:01 08/23/20 17:01 Intake & Output 08/22/20 08/23/20 08/24/20 06:59 06:59 06:59 Intake Total 12 Balance 12 Weight 90.2 kg General appearance: PRESENT: no acute distress, cooperative Head exam: PRESENT: atraumatic Eye exam: ABSENT: scleral icterus Mouth exam: PRESENT: dry mucosa Throat exam: ABSENT: post pharyngeal erythema Neck exam: ABSENT: JVD Respiratory exam: PRESENT: clear to auscultation sanchez, tachypnea. ABSENT: crackles, rhonchi, wheezes Cardiovascular exam: PRESENT: irregular rhythm, tachycardia GI/Abdominal exam: PRESENT: normal bowel sounds, soft. ABSENT: distended, firm, guarding, rebound, rigid, tenderness Gentrourinary exam: ABSENT: indwelling catheter Neurological exam: PRESENT: alert, awake, oriented to person, oriented to place. ABSENT: oriented to time, oriented to situation Psychiatric exam: PRESENT: flat affect Skin exam: ABSENT: jaundice Results Laboratory Results: 08/23/20 10:43 08/23/20 10:43 08/23/20 08/23/20 08/23/20 10:43 10:43 10:43 WBC 8.3 RBC 5.70 H Hgb 15.3 Hct 46.9 MCV 82 MCH 26.8 L MCHC 32.5 RDW 16.9 H Plt Count 219 Seg Neutrophils % Not Reportable Carbonic Acid HCO3/H2CO3 Ratio ABG pH ABG pCO2 ABG pO2 ABG HCO3 ABG O2 Saturation ABG Base Excess VBG pH VBG pCO2 VBG HCO3 VBG Base Excess FiO2 Sodium 141.8 Potassium 4.7 Chloride 107 Carbon Dioxide 25 Anion Gap 10 BUN 32 H Creatinine 2.28 H Est GFR ( Amer) 35 L Glucose 114 H Lactic Acid Calcium 9.6 Total Bilirubin 0.5 AST 29 Alkaline Phosphatase 95 Total Protein 7.9 Albumin 3.9 TSH 4.38 08/23/20 08/23/20 08/23/20 10:43 10:43 11:55 WBC RBC Hgb Hct MCV MCH MCHC RDW Plt Count Seg Neutrophils % Carbonic Acid 0.89 L HCO3/H2CO3 Ratio 23:1 ABG pH 7.48 H ABG pCO2 29.6 L ABG pO2 93.8 ABG HCO3 21.3 ABG O2 Saturation 97.7 ABG Base Excess -1.0 VBG pH 7.39 VBG pCO2 42.8 VBG HCO3 25.2 VBG Base Excess 0 FiO2 2L Sodium Potassium Chloride Carbon Dioxide Anion Gap BUN Creatinine Est GFR ( Amer) Glucose Lactic Acid 1.7 Calcium Total Bilirubin AST Alkaline Phosphatase Total Protein Albumin TSH 08/23/20 13:41 WBC RBC Hgb Hct MCV MCH MCHC RDW Plt Count Seg Neutrophils % Carbonic Acid HCO3/H2CO3 Ratio ABG pH ABG pCO2 ABG pO2 ABG HCO3 ABG O2 Saturation ABG Base Excess VBG pH VBG pCO2 VBG HCO3 VBG Base Excess FiO2 Sodium Potassium Chloride Carbon Dioxide Anion Gap BUN Creatinine Est GFR ( Amer) Glucose Lactic Acid 1.9 Calcium Total Bilirubin AST Alkaline Phosphatase Total Protein Albumin TSH 08/23/20 08/23/20 10:43 13:41 Troponin I 0.106 0.135 NT-Pro-B Natriuret Pep 9060 H Impressions: Chest X-Ray 08/23/20 10:48 IMPRESSION: NO ACUTE RADIOGRAPHIC FINDING IN THE CHEST. Assessment and Plan - Diagnosis (1) Atrial fibrillation with rapid ventricular response Is this a current diagnosis for this admission?: Yes (2) Chronic diastolic CHF (congestive heart failure) Is this a current diagnosis for this admission?: Yes (3) COVID-19 virus detected Is this a current diagnosis for this admission?: Yes (4) Hypotension Is this a current diagnosis for this admission?: Yes (5) Dehydration Is this a current diagnosis for this admission?: Yes (6) Acute respiratory failure with hypoxia Is this a current diagnosis for this admission?: Yes (7) Acute kidney injury Is this a current diagnosis for this admission?: Yes (8) Fever Qualifiers: Fever type: due to other condition Qualified Code(s): R50.81 - Fever presenting with conditions classified elsewhere Is this a current diagnosis for this admission?: Yes (9) COPD (chronic obstructive pulmonary disease) Qualifiers: Emphysema type: unspecified Is this a current diagnosis for this admission?: Yes - Plan Summary Summary: LATRICE MAO is a 69 year old male with PMH of dementia, HTN, HLD, CHF, COPD, DM2, CAD status post CABG, CVA with residual left-sided weakness and contractures, who is a resident of [facility], who presented to the ED with atrial fibrillation with RVR. Patient is a poor history due to dementia. Per ED physician, Dr. Zapata: "Evidently EMS was initially called for him being unresponsive with a heart rate of 30. Upon arrival EMS found him to be fully responsive with a heart rate of 150." In the ED, VS were notable for tachycardia, hypotension, tachypnea and hypoxemia. He was placed on NC and started on a diltiazem drip. EKG showed AFRVR without obvious ischemic changes. CXR showed no effusions, infiltrates or other findings. Labs were notable for elevated BUN/Cr and troponin of 0.10. Patient adamantly denies chest pain or pressure. He tells me that his SOB has resolved since he's been in the ED. His only concern is that he is thirsty. Per [facility] records, he was last tested for COVID-19 on 08/20 and his test was negative at that time. Here, in the ED, he tested positive. Atrial Fibrillation with RVR vs SSS: it is unclear to me whether he truly ever had symptomatic bradycardia, or if there was a misunderstanding when call was made to EMS. He has had no evidence of SSS thus far this hospitalization and remains in AFRVR, although HR is now better controlled. He appears quite dry on exam and some aspect of his tachycardia may be due to hypovolemia, so will hydrate. - continuous telemetry monitoring - start home metoprolol 100 mg PO BID - start Eliquis 5 mg PO BID for AC NSTEMI, type 2: likely demand ischemia in the s/o infection/AFRVR. He denies chest pain/pressure. EKG shows no ischemic changes. - trend troponin - start ASA, statin and beta ahsan - consult cardiology (Dr. Reese) - may benefit from TTE this hospitalization (we have no known records of one) Covid-19 Infection Acute Hypoxemic Respiratory Failure: likely due to Covid-19 infection. No clear evidence of pneumonia on CXR, although it is still very early in the course of the disease, so we may see an infiltrate after hydration and with time. He is currently stable on 2 L O2 via NC. - start azithromycin/ceftriaxone x5 days - start dexamethasone x10 days - start Zinc, Vit C, Vit D, B-complex - check and trend d-dimer, CRP, ferritin, LDH JUAN JOSE: likely due to dehydration in the s/o infection. Will monitor closely for volume overload with hydration given history of CHF. - start NS at 120 ml/hr - repeat BMP in AM - renally dose medications - avoid nephrotoxins Hypotension: due to combination of AFRVR, infection and dehydration. - improved with rate control - check BCx and lactate - IVF as per above - Time Time Spent with patient: 35 or more minutes Anticipated Discharge Disposition: [facility] Facility Anticipated Discharge Timeframe: within 72 hours
[2020-08-23] MEDS ORDERED: NORMAL SALINE 1000 ML 500 ML IV ONE (18:03)
[2020-08-23] MEDS: ASCORBIC ACID 500 MG TABLET PO SCH (18:28)
[2020-08-23] MEDS: CEFTRIAXONE 1 GM/D5W RTU 1 GM/50 ML RTUPB IV SCH (23:37)
[2020-08-23] MEDS: METOPROLOL TARTRATE 100 MG TABLET PO SCH (23:38)
[2020-08-23] MEDS: ATORVASTATIN CALCIUM 80 MG TABLET PO SCH (23:38)
[2020-08-23] MEDS: APIXABAN 5 MG TABLET PO SCH (23:38)
[2020-08-23] MEDS: NORMAL SALINE 1000 ML 1,000 ML IV PRN (23:39)
[2020-08-24] MEDS: PANTOPRAZOLE SODIUM 40 MG TABLET.DR PO SCH (05:42)
[2020-08-24] MEDS ORDERED: BACLOFEN 20 MG TABLET PO PRN (07:55)
[2020-08-24] MEDS ORDERED: ALBUTEROL SULFATE HFA (90 MCG/PUFF) 8 GM MDI (1 MDI/ER DISP) IH PRN (07:55)
[2020-08-24] MEDS: BUDESONIDE NEB 0.5 MG/2 ML AMPUL NEB SCH ×2 (08:13→21:03)
[2020-08-24] MEDS: ALBUTEROL SULFATE 0.083% NEB 2.5 MG/3 ML AMPUL NEB SCH ×4 (08:13→21:03)
[2020-08-24] MEDS: DILTIAZEM HCL/D5W 125 MG/125 ML RTUINJ IV PRN (08:26)
[2020-08-24 08:32] LABS: ABSOLUTE EOSINOPHILS # (AUTO) 0.1 10^3/uL (0.0-0.6); ABSOLUTE LYMPHOCYTES (AUTO) 2.2 10^3/uL (0.5-4.7); ABSOLUTE MONOCYTES (AUTO) 0.9 10^3/uL (0.1-1.4); ABSOLUTE NEUT (AUTO) 2.3 10^3/uL (1.7-8.2); BASOPHILS % (AUTO) 0.3 % (0-2); EOSINOPHILS % (AUTO) 1.2 % (0-6); HEMATOCRIT 42.6 % (37.9-51.0); HEMOGLOBIN 13.8 g/dL (13.5-17.0); LYMPHOCYTES % (AUTO) 39.7 % (13-45); MEAN CORPUSCULAR HEMOGLOBIN 26.7 pg (27.0-33.4); MEAN CORPUSCULAR HGB CONC 32.4 g/dL (32.0-36.0); MEAN CORPUSCULAR VOLUME 83 fl (80-97); MONOCYTES % (AUTO) 16.5 % (3-13); PLATELET COUNT 148 10^3/uL (150-450); RED BLOOD COUNT 5.16 10^6/uL (4.35-5.55); RED CELL DISTRIBUTION WIDTH 16.8 % (11.5-14.0); SEGMENTED NEUTROPHILS % (AUTO) 42.3 % (42-78); TOTAL CELLS COUNTED % (AUTO) 100 %; WHITE BLOOD COUNT 5.4 10^3/uL (4.0-10.5)
[2020-08-24 08:38] LABS: D-DIMER 1.66 ug/mL (0.00-0.50)
[2020-08-24] MEDS ORDERED: ALBUTEROL SULFATE HFA (90 MCG/PUFF) 8 GM MDI IH PRN (08:39)
[2020-08-24] MEDS: TAMSULOSIN HCL 0.4 MG CAP.SR.24H PO SCH (09:36)
[2020-08-24] MEDS: APIXABAN 5 MG TABLET PO SCH ×2 (09:36→21:25)
[2020-08-24] MEDS: METOPROLOL TARTRATE 100 MG TABLET PO SCH ×2 (09:36→21:25)
[2020-08-24] MEDS: AZITHROMYCIN 250 MG TABLET PO SCH (09:36)
[2020-08-24] MEDS: ALLOPURINOL 100 MG TABLET PO SCH (09:36)
[2020-08-24] MEDS: ASPIRIN 81 MG TABLET, ENT COATED PO SCH (09:36)
[2020-08-24] MEDS: CHOLECALCIFEROL (D3) 1,000 UNIT (25 MCG) TABLET PO SCH (09:36)
[2020-08-24] MEDS: ASCORBIC ACID 500 MG TABLET PO SCH ×2 (09:37→18:12)
[2020-08-24] MEDS: DEXAMETHASONE SOD PHOS INJ 10 MG/1 ML VIAL IV SCH (09:37)
[2020-08-24] MEDS: POLYETHYLENE GLYCOL 3350 POWDER 17 GM/1 PACKET PO SCH (09:39)
[2020-08-24] MEDS: ZINC SULFATE 220 MG CAPSULE PO SCH (09:39)
[2020-08-24 12:09] LABS: ALBUMIN 3.4 g/dL (3.5-5.0); ALKALINE PHOSPHATASE 79 U/L (38-126); ASPARTATE AMINO TRANSFERASE 44 U/L (17-59); BILIRUBIN,DIRECT 0.4 mg/dL (0.0-0.4); BILIRUBIN,TOTAL 0.6 mg/dL (0.2-1.3); BLOOD UREA NITROGEN 38 mg/dL (7-20); C-REACTIVE PROTEIN 60.1 mg/L (<10.0); CALCIUM 8.6 mg/dL (8.4-10.2); CARBON DIOXIDE 18 mmol/L (22-30); CHLORIDE 112 mmol/L (98-107); GLUCOSE 137 mg/dL (75-110); POTASSIUM 4.6 mmol/L (3.6-5.0); TOTAL PROTEIN 7.1 g/dL (6.3-8.2)
[2020-08-24 12:53] LABS: ANION GAP 11 (5-19)
[2020-08-24] MEDS: NORMAL SALINE 1000 ML 1,000 ML IV PRN (14:00)
[2020-08-24] MEDS: AMANTADINE HCL 100 MG CAPSULE PO SCH ×2 (15:36→21:25)
[2020-08-24] MEDS ORDERED: DEXAMETHASONE SOD PHOS INJ 10 MG/1 ML VIAL IV ONE (17:33)
--- NOTE | 2020-08-24 18:35 | PDOC PROGRESS REPORT ---
Subjective Date:: 08/24/20 Subjective:: He is much more awake and alert today. Denies SOB or CP. Reason For Visit: RAPID ATRIAL FIBRILLATION ACUTE KIDNEY INJURY Physical Exam Vital Signs: Temp Pulse Resp BP Pulse Ox 97.9 F 63 20 103/70 97 08/24/20 16:41 08/24/20 17:00 08/24/20 16:41 08/24/20 17:00 08/24/20 16:41 Intake & Output 08/23/20 08/24/20 08/25/20 06:59 06:59 06:59 Intake Total 637 47 Output Total 400 Balance 237 47 Weight 92.5 kg Results Laboratory Results: 08/24/20 07:59 08/24/20 11:33 08/23/20 08/24/20 08/24/20 19:00 07:59 07:59 WBC 5.4 RBC 5.16 Hgb 13.8 Hct 42.6 MCV 83 MCH 26.7 L MCHC 32.4 RDW 16.8 H Plt Count 148 L Seg Neutrophils % 42.3 Sodium Cancelled Potassium Cancelled Chloride Cancelled Carbon Dioxide Cancelled Anion Gap Cancelled BUN Cancelled Creatinine Cancelled Est GFR ( Amer) Cancelled Est GFR (Non-Af Amer) Cancelled Glucose Cancelled Lactic Acid 1.7 Calcium Cancelled Ferritin Cancelled Total Bilirubin Cancelled AST Cancelled Alkaline Phosphatase Cancelled C-Reactive Protein Cancelled Total Protein Cancelled Albumin Cancelled 08/24/20 11:33 WBC RBC Hgb Hct MCV MCH MCHC RDW Plt Count Seg Neutrophils % Sodium 140.9 Potassium 4.6 Chloride 112 H Carbon Dioxide 18 L Anion Gap 11 BUN 38 H Creatinine 1.92 H Est GFR ( Amer) 42 L Est GFR (Non-Af Amer) Glucose 137 H Lactic Acid Calcium 8.6 Ferritin 222.00 Total Bilirubin 0.6 AST 44 Alkaline Phosphatase 79 C-Reactive Protein 60.1 H Total Protein 7.1 Albumin 3.4 L 08/23/20 08/23/20 08/23/20 10:43 13:41 19:00 Troponin I 0.106 0.135 0.132 NT-Pro-B Natriuret Pep 9060 H 08/24/20 08/24/20 00:48 11:33 Troponin I 0.097 0.074 NT-Pro-B Natriuret Pep Impressions: Chest X-Ray 08/23/20 10:48 IMPRESSION: NO ACUTE RADIOGRAPHIC FINDING IN THE CHEST. Assessment and Plan - Diagnosis (1) Atrial fibrillation with rapid ventricular response Is this a current diagnosis for this admission?: Yes (2) Chronic diastolic CHF (congestive heart failure) Is this a current diagnosis for this admission?: Yes (3) COVID-19 virus detected Is this a current diagnosis for this admission?: Yes (4) Hypotension Is this a current diagnosis for this admission?: Yes (5) Dehydration Is this a current diagnosis for this admission?: Yes (6) Acute respiratory failure with hypoxia Is this a current diagnosis for this admission?: Yes (7) Acute kidney injury Is this a current diagnosis for this admission?: Yes (8) Fever Qualifiers: Fever type: due to other condition Qualified Code(s): R50.81 - Fever presenting with conditions classified elsewhere Is this a current diagnosis for this admission?: Yes (9) COPD (chronic obstructive pulmonary disease) Qualifiers: Emphysema type: unspecified Is this a current diagnosis for this admission?: Yes - Plan Summary Summary: LATRICE MAO is a 69 year old male with PMH of dementia, HTN, HLD, CHF, COPD, DM2, CAD status post CABG, 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 Patient is a poor history due to dementia. Pe r ED physician, Dr. Zapata: "Evidently EMS was initially called for him being unresponsive with a heart rate of 30. Upon arrival EMS found him to be fully responsive with a heart rate of 150." In the ED, VS were notable for tachycardia, hypotension, tachypnea and hypoxemia. He was placed on NC and started on a diltiazem drip. EKG showed AFRVR without obvious ischemic changes. CXR showed no effusions, infiltrates or other findings. Labs were notable for elevated BUN/Cr and troponin of 0.10. Patient adamantly denies chest pain or pressure. He tells me that his SOB has resolved since he's been in the ED. His only concern is that he is thirsty. Per [facility] records, he was last tested for COVID-19 on 08/20 and his test was negative at that time. Here, in the ED, he tested positive. Atrial Fibrillation with RVR vs SSS: it is unclear to me whether he truly ever had symptomatic bradycardia, or if there was a misunderstanding when call was made to EMS. HR is now better controlled. He appears quite dry on exam and some aspect of his tachycardia may have been due to hypovolemia, so will hydrate. - continuous telemetry monitoring - start home metoprolol 100 mg PO BID - start Eliquis 5 mg PO BID for AC NSTEMI, type 2: likely demand ischemia in the s/o infection/AFRVR. He denies chest pain/pressure. EKG shows no ischemic changes. - trend troponin - start ASA, statin and beta ahsan - consult cardiology (Dr. Reese) - may benefit from TTE this hospitalization (we have no known records of one) Covid-19 Infection Acute Hypoxemic Respiratory Failure: likely due to Covid-19 infection. No clear evidence of pneumonia on CXR, although it is still very early in the course of the disease, so we may see an infiltrate after hydration and with time. He is currently stable on 2 L O2 via NC. - start azithromycin/ceftriaxone x5 days - start dexamethasone x10 days - start Zinc, Vit C, Vit D, B-complex - check and trend d-dimer, CRP, ferritin, LDH JUAN JOSE: likely due to dehydration in the s/o infection. Will monitor closely for volume overload with hydration given history of CHF. - start NS at 120 ml/hr - repeat BMP in AM - renally dose medications - avoid nephrotoxins Hypotension: due to combination of AFRVR, infection and dehydration. - improved with rate control - IVF as per above - Time Time Spent with patient: 35 or more minutes Anticipated Discharge Disposition: Senior Living Facility Anticipated Discharge Timeframe: within 24 hours
--- NOTE | 2020-08-24 20:17 | PDOC CONSULTATION ---
Consultation-Blank Consultation: CARDIOLOGY CONSULTATION by Dr. Leydi Julien on 08/24/2020. Patient seen at 2 PM. 60 minutes spent as patient more than 50% of time spent in direct patient care. CONSULT REQUESTING PHYSICIAN: Dr. Vela, [facility]. REASON FOR CONSULTATION: Atrial fibrillation with rapid ventricular response. HISTORY of PRESENT ILLNESS: Patient is not a very good historian. 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 Subsequently when EMS examined him his heart rate was 130 or greater with the patient being in atrial fibrillation. The patient did complain of rapid beating of his heart and dizziness and near syncope. There is no prior such symptoms. His last EKG on 01/2019 showed sinus rhythm. He also has a history of diabetes mellitus. There is no documented chronic kidney disease, but the patient appears to be dehydrated and in acute renal failure which is improving with the patient being hydrated. At present the patient's heart rate is acceptably controlled and the patient still on Cardizem drip at 5 mg/h. He denies any chest pain or discomfort. There is no shortness of breath. Incidentally is Covid19 test came back positive. His chest x-ray showed does not show any heart failure or pneumonia. Past Medical History Cardiac Medical History: Reports: Atrial Fibrillation, Congestive Heart Failure, Coronary Artery Disease - Status post CABG, Hyperlipidema, Hypertension Pulmonary Medical History: Reports: Chronic Obstructive Pulmonary Disease (COPD) Neurological Medical History: Reports: Ischemic CVA Endocrine Medical History: Reports: Diabetes Mellitus Type 2 Psychiatric Medical History: Denies: Depression Past Surgical History Past Surgical History: Reports: Coronary Artery Bypass Graft Social History Information Source: Relative Lives with: Intermediate Smoking Status: Never Smoker Frequency of Alcohol Use: None Hx Recreational Drug Use: No Drugs: None Hx Prescription Drug Abuse: No - Advance Directive Resuscitation Status: Full Code. The patient's son is a surrogate healthcare decision maker. Family History Family History: Reviewed & Not Pertinent Parental Family History Reviewed: Yes Children Family History Reviewed: Yes Sibling(s) Family History Reviewed.: Yes Medication/Allergy Home Medications: Acetaminophen [Tylenol 325 mg Tablet] 650 mg PO Q6HP PRN 02/09/19 Amantadine HCl [Amantadine] 100 mg PO BID@0800,1200 02/09/19 Amlodipine Besylate [Norvasc 10 mg Tablet] 10 mg PO DAILY 02/09/19 Aspirin [Adult Low Dose Aspirin EC] 81 mg PO QAM 02/09/19 Atorvastatin Calcium [Lipitor 80 mg Tablet] 80 mg PO QHS 02/09/19 Baclofen [Baclofen 20 mg Tablet] 30 mg PO TIDP PRN 02/09/19 Clonidine HCl [Catapres 0.1 mg Tablet] 0.1 mg PO BID 02/09/19 Hydralazine HCl 100 mg PO TID 02/09/19 Ibuprofen [Motrin 400 mg Tablet] 400 mg PO DAILYP PRN 02/09/19 Ipratropium/Albuterol Sulfate [Duoneb 3 ml Ampul] 3 ml NEB RTQ6HP PRN 02/09/19 Metoprolol Tartrate [Lopressor 100 mg Tablet] 100 mg PO BID 02/09/19 Multivitamin [Multiple Vitamins] 1 tab PO DAILY 02/09/19 Polyethylene Glycol 3350 [Miralax Powder 17 gm/Packet] 17 gm PO DAILY 02/09/19 Isosorbide Mononitrate [Imdur 30 mg Tablet.er] 30 mg PO DAILY #30 tab.er.24h 02/14/19 Allergies/Adverse Reactions: No Known Allergies Allergy (Unverified 02/09/19 02:04) Review of Systems: REVIEW OF SYSTEMS: CONSTITUTIONAL: The patient denies any fever chills or rigors, denies generalized weakness but does have some fatigue. HEAD: Denies headaches or head injury. EYES: There is no amblyopia diplopia, and no amaurosis fugax. EARS: No hearing loss, no tinnitus or vertigo. NOSE: No history of hayfever, no nosebleeds, and no nasal polyps. MOUTH: No altered taste sensation, no ulcers in the mouth and no bleeding from the gums. Compl ains of increased thirst. THROAT: No odynophagia or dysphagia, no recurrent sore throats. SKIN: There is no pruritus no no elevation discoloration of the skin, and no eczema. LUNGS: No history of asthma COPD, history of pneumonia in August. Treated and cured as per patient. No history of sleep apnea. No history of pulmonary embolism. No pleuritic chest pain no hemoptysis. No wheezing or cough or sputum production. HEART: He has history of CAD, history of CABG, but no anginal symptoms, and also has history of hypertension hyperlipidemia. The patient was aware of rapid beating of his heart and had a near syncopal episode. He also complained of dizziness with rapid heartbeat. This is secondary to atrial fibrillation with rapid ventricle response. Doubt if the patient's heart rate was 30.. There is no history of congenital heart disease or rheumatic heart disease. GI: No history of fatty food intolerance no abdominal pain, no cirrhosis. No GI bleed. No altered bowel movements. ENDOCRINE: No history of diabetes mellitus or thyroid disease. No history of polydipsia polyuria, no history of heat or cold intolerance. MUSCULOSKELETAL: Has a history of arthritis, but no disabling symptoms, and no history of collagen vascular disease. RENAL: No symptoms of enlarged prostate. No history of chronic kidney disease. With the patient most likely is acute renal failure secondary to dehydration. No symptoms of UTI. No history of hematuria pyuria or METABOLIC: He has no has a history of morbid obesity present and history of hyperlipidemia. No history of gout. CONTAINERS SALES REPRESENTATIVE: He has a prior history of CVA x2 with residual left-sided weakness and contractures. No recent recurrence of TIA or CVA symptoms. No history of migraines or seizures. No history of gait imbalan ce. PSYCHIATRIC: No history of anxiety or depression. No history of suicidal ideation or homicidal ideation. VASCULAR: No history of calf or buttock claudication, no history of DVT. HEMATOLOGICAL: No history of bleeding diathesis or or clotting disorders, but has a history of anemia. Current Medications Generic Name Dose Route Start Last Admin Trade Name Freq PRN Reason Stop Dose Admin Acetaminophen 650 mg 08/23/20 17:25 Acetaminophen 325 Mg Tablet PO 09/22/20 17:24 Q4HP PRN for pain or fever Al Hydrox/Mg Hydrox/Simethicone 15 ml 08/23/20 17:25 Mag Hydrox/Al Hydrox/Simeth Susp 30 Ml Udcup PO 09/22/20 17:24 Q6HP PRN HEARTBURN Albuterol 2.5 mg 08/24/20 08:00 08/24/20 16:28 Albuterol Sulfate 0.083% Neb 2.5 Mg/3 Ml Ampul NEB 09/23/20 07:59 2.5 mg RTQID PRABHA Administration Albuterol 2 puff 08/24/20 08:39 Albuterol Sulfate Hfa (90 Mcg/Puff) 8 Gm Mdi IH 09/23/20 08:38 Q6HP PRN COPD Allopurinol 100 mg 08/24/20 10:00 08/24/20 09:36 Allopurinol 100 Mg Tablet PO 09/23/20 09:59 100 mg DAILY PRABHA Administration Amantadine HCl 100 mg 08/24/20 10:00 08/24/20 15:36 Amantadine Hcl 100 Mg Capsule PO 09/23/20 09:59 Not Given Q12 PRABHA Apixaban 5 mg 08/23/20 22:00 08/24/20 09:36 Apixaban 5 Mg Tablet PO 09/22/20 21:59 5 mg Q12 PRABHA Administration Ascorbic Acid 500 mg 08/23/20 18:00 08/24/20 18:12 Ascorbic Acid 500 Mg Tablet PO 09/22/20 17:59 500 mg BID PRABHA Administration Aspirin 81 mg 08/24/20 10:00 08/24/20 09:36 Aspirin 81 Mg Tablet, Ent Coated PO 09/23/20 09:59 81 mg DAILY PRABHA Administration Atorvastatin Calcium 80 mg 08/23/20 22:00 08/23/20 23:38 Atorvastatin Calcium 80 Mg Tablet PO 09/22/20 21:59 80 mg QHS PRABHA Administration Azithromycin 250 mg 08/24/20 10:00 08/24/20 09:36 Azithromycin 250 Mg Tablet PO 08/28/20 10:01 250 mg DAILY PRABHA Administration Baclofen 30 mg 08/24/20 07:55 Baclofen 20 Mg Tablet PO 09/23/20 07:54 TIDP PRN MUSCLE SPASMS Budesonide 0.5 mg 08/24/20 08:00 08/24/20 08:13 Budesonide Neb 0.5 Mg/2 Ml Ampul NEB 09/23/20 07:59 0.5 mg RTQ12 PRABHA Administration Cholecalciferol 2,000 unit 08/24/20 10:00 08/24/20 09:36 Cholecalciferol (D3) 1,000 Unit (25 Mcg) Tablet PO 09/23/20 09:59 2,000 unit DAILY PRABHA Administration Dexamethasone Sodium Phosphate 6 mg 08/24/20 10:00 08/24/20 09:37 Dexamethasone Sod Phos Inj 10 Mg/1 Ml Vial IV 09/23/20 09:59 6 mg DAILY PRABHA Administration Sodium Chloride 1,000 mls @ 120 mls/hr 08/23/20 17:25 08/24/20 14:00 Nacl 0.9% 1000 Ml Iv Soln IV 09/22/20 17:24 120 mls/hr CONTINUOUS PRN Administration THIS MED IS NOT "PRN" Ceftriaxone Sodium/Dextrose 1 gm in 50 mls @ 100 mls/hr 08/23/20 22:00 08/24/20 00:07 Rocephin Rtu 1 Gm/D5w 50 Ml Premix IV 08/27/20 22:29 Infused QHS PRABHA Infusion Metoprolol Tartrate 100 mg 08/23/20 22:00 08/24/20 09:36 Metoprolol Tartrate 100 Mg Tablet PO 09/22/20 21:59 100 mg Q12 PRABHA Administration Ondansetron HCl 4 mg 08/23/20 17:25 Ondansetron Hcl Inj/Pf 4 Mg/2 Ml Sdv IV 09/22/20 17:24 Q4HP PRN FOR NAUSEA/VOMITING Pantoprazole Sodium 40 mg 08/24/20 06:00 08/24/20 05:42 Pantoprazole Sodium 40 Mg Tablet.Dr PO 09/23/20 05:59 40 mg Q6AM PRABHA Administration Polyethylene Glycol 17 gm 08/24/20 10:00 08/24/20 09:39 Polyethylene Glycol 3350 Powder 17 Gm/1 Packet PO 09/23/20 09:59 17 gm DAILY PRABHA Administration Sodium Chloride 2.5 ml 08/23/20 22:00 08/24/20 15:36 Normal Saline Flush 2.5 Ml Disp.Syrin IV 09/22/20 21:59 Not Given Q8 PRABHA Tamsulosin HCl 0.4 mg 08/24/20 10:00 08/24/20 09:36 Tamsulosin Hcl 0.4 Mg Cap.Sr.24h PO 09/23/20 09:59 0.4 mg DAILY PRABHA Administration Zinc Sulfate 220 mg 08/24/20 10:00 08/24/20 09:39 Zinc Sulfate 220 Mg Capsule PO 09/23/20 09:59 220 mg DAILY PRABHA Administration Discontinued Medications Generic Name Dose Route Start Last Admin Trade Name Alisa PRN Reason Stop Dose Admin Albuterol 2 puff 08/24/20 07:55 Albuterol Sulfate Hfa (90 Mcg/Puff) 8 Gm Mdi (1 Mdi/Er Disp) IH 09/23/20 07:54 Q6HP PRN COPD Azithromycin 500 mg 08/23/20 17:30 08/23/20 18:28 Azithromycin 250 Mg Tablet PO 08/23/20 17:31 500 mg NOW ONE Administration Dexamethasone Sodium Phosphate 6 mg 08/24/20 17:33 08/24/20 18:12 Dexamethasone Sod Phos Inj 10 Mg/1 Ml Vial IV 08/24/20 17:34 Not Given NOW ONE Diltiazem HCl 10 mg 08/23/20 10:49 08/23/20 11:08 Diltiazem Hcl Inj 25 Mg/5 Ml Vial IV 08/23/20 10:50 10 mg NOW ONE Administration Diltiazem HCl 10 mg 08/23/20 12:26 08/23/20 12:28 Diltiazem Hcl Inj 25 Mg/5 Ml Vial IV 08/23/20 12:27 10 mg NOW ONE Administration Diltiazem HCl 125 mg in 125 mls @ 0 mls/hr 08/23/20 12:08 08/24/20 14:00 Cardizem Rtu Inj 125 Mg-D5w 125 Ml Premix IV 09/22/20 12:07 2.5 mg/hr CONTINUOUS PRN 2.5 mls/hr THIS MED IS NOT "PRN" Titration Protocol Titrate Sodium Chloride 500 mls @ 0 mls/hr 08/23/20 18:03 08/23/20 22:31 Nacl 0.9% 1000 Ml Iv Soln IV 08/23/20 18:04 Infused BOLUS ONE Infusion Wide Open Metoprolol Tartrate 100 mg 08/23/20 13:06 08/23/20 13:27 Metoprolol Tartrate 100 Mg Tablet PO 08/23/20 13:07 100 mg NOW ONE Administration PHYSICAL EXAMINATION: The patient is mildly obese. In no acute distress. Selected Entries 08/24/20 08/24/20 08/24/20 03:19 07:58 11:55 Temperature 99.0 F 98.1 F 98.5 F Temperature Oral Source Pulse Rate Respiratory 25 H Rate Respiratory Depth Respiratory Pattern Blood Pressure Blood Pressure Mean O2 Sat by Pulse 96 Oximetry Fraction of Inspired Oxygen (FIO2) Oxygen Flow 2.00 Rate Oxygen Delivery Nasal Cannula Method 08/24/20 08/24/20 08/24/20 12:00 12:06 14:00 Temperature Temperature Source Pulse Rate 108 H 106 H 101 H Respiratory 14 Rate Respiratory Normal Depth Respiratory Normal Pattern Blood Pressure 108/80 122/85 Blood Pressure 89 Mean O2 Sat by Pulse 96 Oximetry Fraction of 28 Inspired Oxygen (FIO2) Oxygen Flow 2 Rate Oxygen Delivery Method 08/24/20 14:03 Temperature Temperature Source Pulse Rate Respiratory Rate Respiratory Depth Respiratory Pattern Blood Pressure 122/85 Blood Pressure 97 Mean O2 Sat by Pulse Oximetry Fraction of Inspired Oxygen (FIO2) Oxygen Flow Rate Oxygen Delivery Method HEAD: Is atraumatic normocephalic. EYES: Pupils are equal round regular reactive light accommodation. Extraocular movements are normal. There is no conjunctival pallor. There is no scleral icterus. EARS: Tympanic membranes are intact. External auditory canals are clear. NOSE: There is no deviated nasal septum. There is no inflammation nasal mucous membrane. MOUTH: Mucous membranes of mouth are dry. Tongue is dry. There is no ulcers. THROAT: There is no redness of the oropharynx. There is no exudates.. NECK: Is supple. There is no JVD. Carotids are equal there is no bruits. There is no lymphad enopathy. There is no goiter. There is no accessory muscle respiration use. Trachea central. LUNGS: Show diminished air entry prolonged expiratory expiration. There is no rhonchi rales or wheezing. There is no chest wall tenderness. There is hyperresonance on percussion. HEART: S1-S2 is heard. S1 is of variable intensity. There is an S4 gallop present there is no S3 gallop there is no S4 gallop. There is a systolic murmur left sternal border and the apex there is no rub. ABDOMEN: Soft. Nontender there is no hepatospleno megaly bowel sounds are well heard. Extremities: Femorals are slightly diminished. There is no femoral bruits. Leg pulses are diminished. There is no pedal edema. CONTAINERS SALES REPRESENTATIVE: The patient is conscious slightly confused. There is residual left-sided weakness with contractures of the upper and lower extremities. PSYCHIATRIC: The patient does not appear to be agitated or or anxious. SUPRAVENTRICULAR TACHYCARDIA [LVHPRE] . PROBABLE LVH WITH SECONDARY REPOL ABNRM I believe this is atrial flutter with rapid ventricular response. EKG #2:ATRIAL FIBRILLATION [ILBBB] . INCOMPLETE LEFT BUNDLE BRANCH BLOCK [LVHPRE] . PROBABLE LVH WITH SECONDARY REPOL ABNRM. Labs- Entire Visit 08/23/20 08/23/20 08/23/20 10:43 10:43 10:43 WBC 8.3 RBC 5.70 H Hgb 15.3 Hct 46.9 MCV 82 MCH 26.8 L MCHC 32.5 RDW 16.9 H Plt Count 219 Lymph % (Auto) Not Reportable Stevens % (Auto) Not Reportable Eos % (Auto) Not Reportable Baso % (Auto) Not Reportable Absolute Neuts (auto) Not Reportable Absolute Lymphs (auto) Not Reportable Absolute Monos (auto) Not Reportable Absolute Eos (auto) Not Reportable Absolute Basos (auto) Not Reportable Total Counted 100 Seg Neutrophils % Not Reportable Seg Neuts % (Manual) 63 Lymphocytes % (Manual) 22 Monocytes % (Manual) 15 H Eosinophils % (Manual) 0 Basophils % (Manual) 0 Abs Neuts (Manual) 5.2 Abs Lymphs (Manual) 1.8 Abs Monocytes (Manual) 1.2 Absolute Eos (Manual) 0.0 Abs Basophils (Manual) 0.0 Clumped Platelets PRESENT Platelet Comment ADEQUATE Polychromasia SLIGHT Anisocytosis 1+ PT 14.0 INR 1.06 Fibrinogen D-Dimer Carbonic Acid HCO3/H2CO3 Ratio ABG pH ABG pCO2 ABG pO2 ABG HCO3 ABG Total CO2 ABG O2 Saturation ABG Base Excess VBG pH VBG pCO2 VBG HCO3 VBG Base Excess FiO2 Sodium 141.8 Potassium 4.7 Chloride 107 Carbon Dioxide 25 Anion Gap 10 BUN 32 H Creatinine 2.28 H Est GFR ( Amer) 35 L Est GFR (Non-Af Amer) Est GFR (MDRD) Non-Af 29 L Glucose 114 H Lactic Acid Calcium 9.6 Ferritin Total Bilirubin 0.5 Direct Bilirubin 0.2 Neonat Total Bilirubin Not Reportable Neonat Direct Bilirubin Not Reportable Neonat Indirect Bili Not Reportable AST 29 ALT 19 Alkaline Phosphatase 95 Troponin I C-Reactive Protein NT-Pro-B Natriuret Pep Total Protein 7.9 Albumin 3.9 EGFR TSH Influenza A (RT-PCR) Influenza B (RT-PCR) RSV (RT-PCR) SARS-CoV-2 Rap RNA(RT-PCR) 08/23/20 08/23/20 08/23/20 10:43 10:43 10:43 WBC RBC Hgb Hct MCV MCH MCHC RDW Plt Count Lymph % (Auto) Stevens % (Auto) Eos % (Auto) Baso % (Auto) Absolute Neuts (auto) Absolute Lymphs (auto) Absolute Monos (auto) Absolute Eos (auto) Absolute Basos (auto) Total Counted Seg Neutrophils % Seg Neuts % (Manual) Lymphocytes % (Manual) Monocytes % (Manual) Eosinophils % (Manual) Basophils % (Manual) Abs Neuts (Manual) Abs Lymphs (Manual) Abs Monocytes (Manual) Absolute Eos (Manual) Abs Basophils (Manual) Clumped Platelets Platelet Comment Polychromasia Anisocytosis PT INR Fibrinogen D-Dimer Carbonic Acid HCO3/H2CO3 Ratio ABG pH ABG pCO2 ABG pO2 ABG HCO3 ABG Total CO2 ABG O2 Saturation ABG Base Excess VBG pH 7.39 VBG pCO2 42.8 VBG HCO3 25.2 VBG Base Excess 0 FiO2 Sodium Potassium Chloride Carbon Dioxide Anion Gap BUN Creatinine Est GFR ( Amer) Est GFR (Non-Af Amer) Est GFR (MDRD) Non-Af Glucose Lactic Acid Calcium Ferritin Total Bilirubin Direct Bilirubin Neonat Total Bilirubin Neonat Direct Bilirubin Neonat Indirect Bili AST ALT Alkaline Phosphatase Troponin I 0.106 C-Reactive Protein NT-Pro-B Natriuret Pep 9060 H Total Protein Albumin EGFR TSH 4.38 Influenza A (RT-PCR) Influenza B (RT-PCR) RSV (RT-PCR) SARS-CoV-2 Rap RNA(RT-PCR) 08/23/20 08/23/20 08/23/20 10:43 10:43 11:55 WBC RBC Hgb Hct MCV MCH MCHC RDW Plt Count Lymph % (Auto) Stevens % (Auto) Eos % (Auto) Baso % (Auto) Absolute Neuts (auto) Absolute Lymphs (auto) Absolute Monos (auto) Absolute Eos (auto) Absolute Basos (auto) Total Counted Seg Neutrophils % Seg Neuts % (Manual) Lymphocytes % (Manual) Monocytes % (Manual) Eosinophils % (Manual) Basophils % (Manual) Abs Neuts (Manual) Abs Lymphs (Manual) Abs Monocytes (Manual) Absolute Eos (Manual) Abs Basophils (Manual) Clumped Platelets Platelet Comment Polychromasia Anisocytosis PT INR Fibrinogen D-Dimer Carbonic Acid 0.89 L HCO3/H2CO3 Ratio 23:1 ABG pH 7.48 H ABG pCO2 29.6 L ABG pO2 93.8 ABG HCO3 21.3 ABG Total CO2 22.2 L ABG O2 Saturation 97.7 ABG Base Excess -1.0 VBG pH VBG pCO2 VBG HCO3 VBG Base Excess FiO2 2L Sodium Potassium Chloride Carbon Dioxide Anion Gap BUN Creatinine Est GFR ( Amer) Est GFR (Non-Af Amer) Est GFR (MDRD) Non-Af Glucose Lactic Acid 1.7 Calcium Ferritin Total Bilirubin Direct Bilirubin Neonat Total Bilirubin Neonat Direct Bilirubin Neonat Indirect Bili AST ALT Alkaline Phosphatase Troponin I C-Reactive Protein NT-Pro-B Natriuret Pep Total Protein Albumin EGFR TSH Influenza A (RT-PCR) NEGATIVE Influenza B (RT-PCR) NEGATIVE RSV (RT-PCR) NEGATIVE SARS-CoV-2 Rap RNA(RT-PCR) POSITIVE 08/23/20 08/23/20 08/23/20 13:41 13:41 19:00 WBC RBC Hgb Hct MCV MCH MCHC RDW Plt Count Lymph % (Auto) Stevens % (Auto) Eos % (Auto) Baso % (Auto) Absolute Neuts (auto) Absolute Lymphs (auto) Absolute Monos (auto) Absolute Eos (auto) Absolute Basos (auto) Total Counted Seg Neutrophils % Seg Neuts % (Manual) Lymphocytes % (Manual) Monocytes % (Manual) Eosinophils % (Manual) Basophils % (Manual) Abs Neuts (Manual) Abs Lymphs (Manual) Abs Monocytes (Manual) Absolute Eos (Manual) Abs Basophils (Manual) Clumped Platelets Platelet Comment Polychromasia Anisocytosis PT INR Fibrinogen D-Dimer Carbonic Acid HCO3/H2CO3 Ratio ABG pH ABG pCO2 ABG pO2 ABG HCO3 ABG Total CO2 ABG O2 Saturation ABG Base Excess VBG pH VBG pCO2 VBG HCO3 VBG Base Excess FiO2 Sodium Potassium Chloride Carbon Dioxide Anion Gap BUN Creatinine Est GFR ( Amer) Est GFR (Non-Af Amer) Est GFR (MDRD) Non-Af Glucose Lactic Acid 1.9 1.7 Calcium Ferritin Total Bilirubin Direct Bilirubin Neonat Total Bilirubin Neonat Direct Bilirubin Neonat Indirect Bili AST ALT Alkaline Phosphatase Troponin I 0.135 C-Reactive Protein NT-Pro-B Natriuret Pep Total Protein Albumin EGFR TSH Influenza A (RT-PCR) Influenza B (RT-PCR) RSV (RT-PCR) SARS-CoV-2 Rap RNA(RT-PCR) 08/23/20 08/24/20 08/24/20 19:00 00:48 07:59 WBC 5.4 RBC 5.16 Hgb 13.8 Hct 42.6 MCV 83 MCH 26.7 L MCHC 32.4 RDW 16.8 H Plt Count 148 L Lymph % (Auto) 39.7 Stevens % (Auto) 16.5 H Eos % (Auto) 1.2 Baso % (Auto) 0.3 Absolute Neuts (auto) 2.3 Absolute Lymphs (auto) 2.2 Absolute Monos (auto) 0.9 Absolute Eos (auto) 0.1 Absolute Basos (auto) 0.0 Total Counted Seg Neutrophils % 42.3 Seg Neuts % (Manual) Lymphocytes % (Manual) Monocytes % (Manual) Eosinophils % (Manual) Basophils % (Manual) Abs Neuts (Manual) Abs Lymphs (Manual) Abs Monocytes (Manual) Absolute Eos (Manual) Abs Basophils (Manual) Clumped Platelets Platelet Comment Polychromasia Anisocytosis PT INR Fibrinogen D-Dimer Carbonic Acid HCO3/H2CO3 Ratio ABG pH ABG pCO2 ABG pO2 ABG HCO3 ABG Total CO2 ABG O2 Saturation ABG Base Excess VBG pH VBG pCO2 VBG HCO3 VBG Base Excess FiO2 Sodium Potassium Chloride Carbon Dioxide Anion Gap BUN Creatinine Est GFR ( Amer) Est GFR (Non-Af Amer) Est GFR (MDRD) Non-Af Glucose Lactic Acid Calcium Ferritin Total Bilirubin Direct Bilirubin Neonat Total Bilirubin Neonat Direct Bilirubin Neonat Indirect Bili AST ALT Alkaline Phosphatase Troponin I 0.132 0.097 C-Reactive Protein NT-Pro-B Natriuret Pep Total Protein Albumin EGFR TSH Influenza A (RT-PCR) Influenza B (RT-PCR) RSV (RT-PCR) SARS-CoV-2 Rap RNA(RT-PCR) 08/24/20 08/24/20 08/24/20 07:59 07:59 11:33 WBC RBC Hgb Hct MCV MCH MCHC RDW Plt Count Lymph % (Auto) Stevens % (Auto) Eos % (Auto) Baso % (Auto) Absolute Neuts (auto) Absolute Lymphs (auto) Absolute Monos (auto) Absolute Eos (auto) Absolute Basos (auto) Total Counted Seg Neutrophils % Seg Neuts % (Manual) Lymphocytes % (Manual) Monocytes % (Manual) Eosinophils % (Manual) Basophils % (Manual) Abs Neuts (Manual) Abs Lymphs (Manual) Abs Monocytes (Manual) Absolute Eos (Manual) Abs Basophils (Manual) Clumped Platelets Platelet Comment Polychromasia Anisocytosis PT INR Fibrinogen 522 H D-Dimer 1.66 H Carbonic Acid HCO3/H2CO3 Ratio ABG pH ABG pCO2 ABG pO2 ABG HCO3 ABG Total CO2 ABG O2 Saturation ABG Base Excess VBG pH VBG pCO2 VBG HCO3 VBG Base Excess FiO2 Sodium Cancelled Potassium Cancelled Chloride Cancelled Carbon Dioxide Cancelled Anion Gap Cancelled BUN Cancelled Creatinine Cancelled Est GFR ( Amer) Cancelled Est GFR (Non-Af Amer) Cancelled Est GFR (MDRD) Non-Af Cancelled Glucose Cancelled Lactic Acid Calcium Cancelled Ferritin Cancelled Total Bilirubin Cancelled Direct Bilirubin Cancelled Neonat Total Bilirubin Cancelled Neonat Direct Bilirubin Cancelled Neonat Indirect Bili Cancelled AST Cancelled ALT Cancelled Alkaline Phosphatase Cancelled Troponin I 0.074 C-Reactive Protein Cancelled NT-Pro-B Natriuret Pep Total Protein Cancelled Albumin Cancelled EGFR Cancelled TSH Influenza A (RT-PCR) Influenza B (RT-PCR) RSV (RT-PCR) SARS-CoV-2 Rap RNA(RT-PCR) 08/24/20 11:33 WBC RBC Hgb Hct MCV MCH MCHC RDW Plt Count Lymph % (Auto) Stevens % (Auto) Eos % (Auto) Baso % (Auto) Absolute Neuts (auto) Absolute Lymphs (auto) Absolute Monos (auto) Absolute Eos (auto) Absolute Basos (auto) Total Counted Seg Neutrophils % Seg Neuts % (Manual) Lymphocytes % (Manual) Monocytes % (Manual) Eosinophils % (Manual) Basophils % (Manual) Abs Neuts (Manual) Abs Lymphs (Manual) Abs Monocytes (Manual) Absolute Eos (Manual) Abs Basophils (Manual) Clumped Platelets Platelet Comment Polychromasia Anisocytosis PT INR Fibrinogen D-Dimer Carbonic Acid HCO3/H2CO3 Ratio ABG pH ABG pCO2 ABG pO2 ABG HCO3 ABG Total CO2 ABG O2 Saturation ABG Base Excess VBG pH VBG pCO2 VBG HCO3 VBG Base Excess FiO2 Sodium 140.9 Potassium 4.6 Chloride 112 H Carbon Dioxide 18 L Anion Gap 11 BUN 38 H Creatinine 1.92 H Est GFR ( Amer) 42 L Est GFR (Non-Af Amer) Est GFR (MDRD) Non-Af 35 L Glucose 137 H Lactic Acid Calcium 8.6 Ferritin 222.00 Total Bilirubin 0.6 Direct Bilirubin 0.4 Neonat Total Bilirubin Not Reportable Neonat Direct Bilirubin Not Reportable Neonat Indirect Bili Not Reportable AST 44 ALT 21 Alkaline Phosphatase 79 Troponin I C-Reactive Protein 60.1 H NT-Pro-B Natriuret Pep Total Protein 7.1 Albumin 3.4 L EGFR TSH Influenza A (RT-PCR) Influenza B (RT-PCR) RSV (RT-PCR) SARS-CoV-2 Rap RNA(RT-PCR) Chest X-Ray 08/23/20 10:48 IMPRESSION: NO ACUTE RADIOGRAPHIC FINDING IN THE CHEST. IMPRESSION/RECOMMENDATION: 1. Atrial fibrillation with rapid ventricle response. At present ventricle response much improved and the patient appears asymptomatic. This seems to be recent onset, since the last EKG of 01/2019 showed the patient to be in sinus rhythm. Agree with the Eliquis since the patient's Trent Vasc 2 score is at least 5. Later once the heart rate is controlled would recommend getting an echocardiogram. We will turn down the Cardizem drip to 2.5 mg/h and subsequent ly stop the Cardizem infusion. Continue beta-ahsan. The patient's noted heart rate of 30 may be erroneous secondary to apical there are due to apical deficit in atrial fibrillation. There is no evidence of sick sinus syndrome. 2. Dehydration causing acute renal insufficiency: Would continue hydration. 3. Acute renal insufficiency: Most likely secondary to dehydration. Avoid nephrotoxic drugs. 4. Elevated troponin which is trending down. This is secondary to atrial fibrillation with rapid ventricular response, and there was a type II MA due to supply demand mismatch.. No evidence of acute coronary syndrome. 5. Hypertension: Well-controlled. Continue beta-blockers. Wean off Cardizem infusion. 6. Coronary artery disease. History of coronary bypass graft surgery. Continue aspirin. Continue metoprolol. Continue statin. Later would recommend IV Lexiscan Cardiolite stress test. But imaging might be difficult due to patient's left hemiparesis and contracture. The other option is to treat the patient maximally for coronary artery disease and consider cardiac catheterization if the patient's symptomatic on good medical therapy for CAD. 7. History of cerebrovascular accident x2. There is significant left-sided weakness with contractures due to prior CVA. 8. History of diabetes mellitus: Continue antidiabetic treatment and Accu-Cheks as per protocol. 9. Hyperlipidemia: Continue statin. 10. COPD: Appears to be stable. 11. Covid19 testing has come back positive for coronavirus infection. 12. Probably has mild dementia. Medications reviewed. Medications adjusted medical decision making is of high complexity. 60 minutes spent as patient with more than 50% time spent in direct patient care. Medical regimen and management plan discussed with the attending provider on the case. Will follow.
[2020-08-24] MEDS: CEFTRIAXONE 1 GM/D5W RTU 1 GM/50 ML RTUPB IV SCH (21:25)
[2020-08-24] MEDS: ATORVASTATIN CALCIUM 80 MG TABLET PO SCH (21:25)
[2020-08-25 05:37] LABS: ABSOLUTE LYMPHOCYTES (AUTO) 0.9 10^3/uL (0.5-4.7); ABSOLUTE MONOCYTES (AUTO) 0.4 10^3/uL (0.1-1.4); ABSOLUTE NEUT (AUTO) 3.7 10^3/uL (1.7-8.2); BASOPHILS % (AUTO) 0.1 % (0-2); HEMOGLOBIN 12.7 g/dL (13.5-17.0); LYMPHOCYTES % (AUTO) 17.7 % (13-45); MEAN CORPUSCULAR HEMOGLOBIN 27.2 pg (27.0-33.4); MEAN CORPUSCULAR HGB CONC 33.5 g/dL (32.0-36.0); MEAN CORPUSCULAR VOLUME 81 fl (80-97); MONOCYTES % (AUTO) 7.4 % (3-13); PLATELET COUNT 153 10^3/uL (150-450); RED BLOOD COUNT 4.68 10^6/uL (4.35-5.55); RED CELL DISTRIBUTION WIDTH 16.7 % (11.5-14.0); SEGMENTED NEUTROPHILS % (AUTO) 74.8 % (42-78); TOTAL CELLS COUNTED % (AUTO) 100 %
[2020-08-25 06:08] LABS: ALBUMIN 3.3 g/dL (3.5-5.0); ALKALINE PHOSPHATASE 79 U/L (38-126); ANION GAP 10 (5-19); ASPARTATE AMINO TRANSFERASE 36 U/L (17-59); BILIRUBIN,DIRECT 0.2 mg/dL (0.0-0.4); BILIRUBIN,TOTAL 0.4 mg/dL (0.2-1.3); BLOOD UREA NITROGEN 30 mg/dL (7-20); C-REACTIVE PROTEIN 54.9 mg/L (<10.0); CALCIUM 8.4 mg/dL (8.4-10.2); CARBON DIOXIDE 20 mmol/L (22-30); CHLORIDE 109 mmol/L (98-107); GLUCOSE 163 mg/dL (75-110); POTASSIUM 4.8 mmol/L (3.6-5.0)
[2020-08-25] MEDS: PANTOPRAZOLE SODIUM 40 MG TABLET.DR PO SCH (06:32)
[2020-08-25] MEDS: NORMAL SALINE 1000 ML 1,000 ML IV PRN ×2 (06:43→18:30)
[2020-08-25] MEDS: BUDESONIDE NEB 0.5 MG/2 ML AMPUL NEB SCH ×2 (07:49→20:16)
[2020-08-25] MEDS: ALBUTEROL SULFATE 0.083% NEB 2.5 MG/3 ML AMPUL NEB SCH ×4 (07:50→20:16)
--- NOTE | 2020-08-25 07:53 | EKG REPORT ---
SEVERITY:- ABNORMAL ECG - SINUS RHYTHM WITH FIRST DEGREE AV BLOCK NONSPECIFIC T ABNORMALITIES, LATERAL LEADS : Confirmed by: Tj Braxton MD 25-Aug-2020 07:52:56
[2020-08-25] MEDS: TAMSULOSIN HCL 0.4 MG CAP.SR.24H PO SCH (10:48)
[2020-08-25] MEDS: DEXAMETHASONE SOD PHOS INJ 10 MG/1 ML VIAL IV SCH (10:48)
[2020-08-25] MEDS: APIXABAN 5 MG TABLET PO SCH ×2 (10:49→21:04)
[2020-08-25] MEDS: AZITHROMYCIN 250 MG TABLET PO SCH (10:49)
[2020-08-25] MEDS: ASCORBIC ACID 500 MG TABLET PO SCH ×2 (10:49→18:21)
[2020-08-25] MEDS: ZINC SULFATE 220 MG CAPSULE PO SCH (10:49)
[2020-08-25] MEDS: CHOLECALCIFEROL (D3) 1,000 UNIT (25 MCG) TABLET PO SCH (10:49)
[2020-08-25] MEDS: ALLOPURINOL 100 MG TABLET PO SCH (10:49)
[2020-08-25] MEDS: ASPIRIN 81 MG TABLET, ENT COATED PO SCH (10:49)
[2020-08-25] MEDS: METOPROLOL TARTRATE 100 MG TABLET PO SCH ×2 (10:49→21:04)
[2020-08-25] MEDS: POLYETHYLENE GLYCOL 3350 POWDER 17 GM/1 PACKET PO SCH (10:50)
[2020-08-25] MEDS: AMANTADINE HCL 100 MG CAPSULE PO SCH ×2 (10:50→21:04)
--- NOTE | 2020-08-25 17:00 | PDOC PROGRESS REPORT ---
Subjective Date:: 08/25/20 Subjective:: NAEO. He has been weaned off O2 and diltiazem ggt. HR is appropriate and BP is good. Renal function improving with IVF. Reason For Visit: RAPID ATRIAL FIBRILLATION ACUTE KIDNEY INJURY Physical Exam Vital Signs: Temp Pulse Resp BP Pulse Ox 97.6 F 67 16 130/77 H 97 08/25/20 15:23 08/25/20 16:08 08/25/20 16:08 08/25/20 15:23 08/25/20 16:08 Intake & Output 08/24/20 08/25/20 08/26/20 06:59 06:59 06:59 Intake Total 637 3968 480 Output Total 400 1400 300 Balance 237 2568 180 Weight 92.5 kg 92.5 kg General appearance: PRESENT: no acute distress Eye exam: ABSENT: scleral icterus Mouth exam: PRESENT: dry mucosa Throat exam: ABSENT: post pharyngeal erythema Neck exam: ABSENT: JVD Respiratory exam: PRESENT: unlabored. ABSENT: crackles, wheezes Cardiovascular exam: PRESENT: RRR GI/Abdominal exam: PRESENT: normal bowel sounds, soft. ABSENT: tenderness Gentrourinary exam: PRESENT: other Extremities exam: PRESENT: other - L-sided weakness/contractures Neurological exam: PRESENT: alert, altered, awake, oriented to person. ABSENT: oriented to place, oriented to time, oriented to situation Psychiatric exam: PRESENT: flat affect Skin exam: ABSENT: rash Results Laboratory Results: 08/25/20 05:02 08/25/20 05:02 08/25/20 08/25/20 05:02 05:02 WBC 5.0 RBC 4.68 Hgb 12.7 L Hct 38.0 MCV 81 MCH 27.2 MCHC 33.5 RDW 16.7 H Plt Count 153 Seg Neutrophils % 74.8 Sodium 139.4 Potassium 4.8 Chloride 109 H Carbon Dioxide 20 L Anion Gap 10 BUN 30 H Creatinine 1.47 H Est GFR ( Amer) 57 L Glucose 163 H Calcium 8.4 Ferritin 212.00 Total Bilirubin 0.4 AST 36 Alkaline Phosphatase 79 C-Reactive Protein 54.9 H Total Protein 7.0 Albumin 3.3 L 08/23/20 08/23/20 08/23/20 10:43 13:41 19:00 Troponin I 0.106 0.135 0.132 NT-Pro-B Natriuret Pep 9060 H 08/24/20 08/24/20 00:48 11:33 Troponin I 0.097 0.074 NT-Pro-B Natriuret Pep Impressions: Chest X-Ray 08/23/20 10:48 IMPRESSION: NO ACUTE RADIOGRAPHIC FINDING IN THE CHEST. Assessment and Plan - Diagnosis (1) Atrial fibrillation with rapid ventricular response Is this a current diagnosis for this admission?: Yes (2) Chronic diastolic CHF (congestive heart failure) Is this a current diagnosis for this admission?: Yes (3) COVID-19 virus detected Is this a current diagnosis for this admission?: Yes (4) Hypotension Is this a current diagnosis for this admission?: Yes (5) Dehydration Is this a current diagnosis for this admission?: Yes (6) Acute respiratory failure with hypoxia Is this a current diagnosis for this admission?: Yes (7) Acute kidney injury Is this a current diagnosis for this admission?: Yes (8) Fever Qualifiers: Fever type: due to other condition Qualified Code(s): R50.81 - Fever presenting with conditions classified elsewhere Is this a current diagnosis for this admission?: Yes (9) COPD (chronic obstructive pulmonary disease) Qualifiers: Emphysema type: unspecified Is this a current diagnosis for this admission?: Yes - Plan Summary Summary: LATRICE MAO is a 69 year old male with PMH of dementia, HTN, HLD, CHF, COPD, DM2, CAD status post CABG, CVA with residual left-sided weakness and contractures, who is a resident of [facility], who presented to the ED with atrial fibrillation with RVR. Patient is a poor history due to dementia. Per ED physician, Dr. Zapata: "Evidently EMS was initially called for him being unresponsive with a heart rate of 30. Upon arrival EMS found him to be fully responsive with a heart rate of 150." In the ED, VS were notable for tachycardia, hypotension, tachypnea and hypoxemia. He was placed on NC and started on a diltiazem drip. EKG showed AFRVR without obvious ischemic changes. CXR showed no effusions, infiltrates or other findings. Labs were notable for elevated BUN/Cr and troponin of 0.10. Patient adamantly denies chest pain or pressure. He tells me that his SOB has resolved since he's been in the ED. His only concern is that he is thirsty. Per [facility] records, he was last tested for COVID-19 on 08/20 and his test was negative at that time. Here, in the ED, he tested positive. Atrial Fibrillation with RVR: it is unclear to me whether he truly ever had symptomatic bradycardia, or if there was a misunderstanding when call was made to EMS, or if his true HR was not correctly captured on initial VS by residential staff. HR is now better controlled. He appears quite dry on exam and some aspect of his tachycardia may have been due to hypovolemia. - continuous telemetry monitoring - start home metoprolol 100 mg PO BID - start Eliquis 5 mg PO BID for AC NSTEMI, type 2: likely demand ischemia in the s/o infection/AFRVR. He denies chest pain/pressure. EKG shows no ischemic changes. Troponin peaked at 0.135. - continue ASA, statin and beta ahsan - cardiology (Dr. Reese) consulted and recommended TTE, but he would not be a candidate for stress testing due to his contractures and bedbound status Covid-19 Infection Acute Hypoxemic Respiratory Failure: resolved. No clear evidence of pneumonia on CXR. He is saturating well on RA. - start azithromycin/ceftriaxone x5 days - start dexamethasone x10 days - start Zinc, Vit C, Vit D, B-complex - check and trend d-dimer, CRP, ferritin, LDH JUAN JOSE: likely due to dehydration in the s/o Covid-19 infection. Improving with IVF. - repeat BMP in AM - renally dose medications - avoid nephrotoxins Hypotension: due to combination of AFRVR, infection and dehydration. - improved with rate control - IVF as per above - Time Time Spent with patient: 35 or more minutes Anticipated Discharge Disposition: [facility] Anticipated Discharge Timeframe: within 24 hours
--- NOTE | 2020-08-25 20:42 | Progress Note ---
Provider Note Provider Note: CARDIOLOGY PROGRESS NOTE by Dr. Leydi Preciado on 08/25/2020. SUBJECTIVE: The patient last night converted to sinus rhythm. He is off the Cardizem drip and is on p.o. Lopressor. His blood pressure is fairly well controlled. He denies any chest pain or discomfort. There is no shortness of breath. There is no PND orthopnea or leg edema. There is no bleeding on Eliquis. There is no TIA CVA symptoms. There is no recurrent symptoms of TIA or CVA. Physical EXAMINATION: The patient is mildly obese. In no acute distress. Selected Entries 08/25/20 08/25/20 10:30 11:55 Temperature 97.5 F Temperature Axillary Source Pulse Rate 71 Respiratory 18 Rate Blood Pressure 144/65 H Blood Pressure 91 Mean BP Location Right Arm BP Position Supine O2 Sat by Pulse 97 Oximetry Fraction of 28 Inspired Oxygen (FIO2) Oxygen Flow 2 Rate Oxygen Delivery Nasal Cannula Method HEAD: Is atraumatic normocephalic. EYES: Pupils are equal round regular reactive light accommodation. Extraocular movements are normal. There is no conjunctival pallor. There is no scleral icterus. EARS: Tympanic membranes are intact. External auditory canals are clear. NOSE: There is no deviated nasal septum. There is no inflammation nasal mucous membrane. MOUTH: Mucous membranes of mouth are dry. Tongue is dry. There is no ulcers. THROAT: There is no redness of the oropharynx. There is no exudates.. NECK: Is supple. There is no JVD. Carotids are equal there is no bruits. There is no lymphadenopathy. There is no goiter. There is no accessory muscle respiration use. Trachea central. LUNGS: Show diminished air entry prolonged expiratory expiration. There is no rhonchi rales or wheezing. There is no chest wall tenderness. There is hyperresonance on percussion. HEART: S1-S2 is heard. S1 is of variable intensity. There is an S4 gallop present there is no S3 gallop there is no S4 gallop. There is a systolic murmur left sternal border and the apex there is no rub. ABDOMEN: Soft. Nontender there is no hepatospleno megaly bowel sounds are well heard. Extremities: Femorals are slightly diminished. There is no femoral bruits. Leg pulses are diminished. There is no pedal edema. [employer]: The patient is conscious slightly confused. There is residual left-sided weakness with contractures of the upper and lower extremities. PSYCHIATRIC: The patient does not appear to be agitated or or anxious. EKG:SINUS RHYTHM WITH FIRST DEGREE AV BLOCK [T1LA] . NONSPECIFIC T ABNORMALITIES, LATERAL LEADS. Labs- All tests 24 hr 08/25/20 08/25/20 05:02 05:02 WBC 5.0 RBC 4.68 Hgb 12.7 L Hct 38.0 MCV 81 MCH 27.2 MCHC 33.5 RDW 16.7 H Plt Count 153 Lymph % (Auto) 17.7 [place] % (Auto) 7.4 Eos % (Auto) 0.0 Baso % (Auto) 0.1 Absolute Neuts (auto) 3.7 Absolute Lymphs (auto) 0.9 Absolute Monos (auto) 0.4 Absolute Eos (auto) 0.0 Absolute Basos (auto) 0.0 Seg Neutrophils % 74.8 Sodium 139.4 Potassium 4.8 Chloride 109 H Carbon Dioxide 20 L Anion Gap 10 BUN 30 H Creatinine 1.47 H Est GFR ( Amer) 57 L Est GFR (MDRD) Non-Af 47 L Glucose 163 H Calcium 8.4 Ferritin 212.00 Total Bilirubin 0.4 Direct Bilirubin 0.2 Neonat Total Bilirubin Not Reportable Neonat Direct Bilirubin Not Reportable Neonat Indirect Bili Not Reportable AST 36 ALT 21 Alkaline Phosphatase 79 C-Reactive Protein 54.9 H Total Protein 7.0 Albumin 3.3 L Chest X-Ray 08/23/20 10:48 IMPRESSION: NO ACUTE RADIOGRAPHIC FINDING IN THE CHEST. IMPRESSION/RECOMMENDATION: 1. Paroxysmal atrial fibrillation. Patient now in sinus rhythm. Note the patient has no murmur of aortic stenosis and no significant tricuspid regurgitation or mitral regurgitation by physical exam. Also the patient with a heart rate of 150 with the patient being in atrial fibrillation he did not have any evidence of heart failure clinically or by chest x-ray. And skin get the echocardiogram as an outpatient. Also it will be difficult to get a stress test on this patient in view of the left upper extremity contracture which will interfere with imaging. Hence would treat this patient's coronary artery disease and maximize his medical management and treatment of coronary artery disease. If the patient has breakthrough angina on good medical therapy then would recommend that the patient be referred for cardiac catheterization. There is no evidence of sick sinus syndrome. Continue beta-ahsan and Eliquis. 2. Dehydration causing acute renal insufficiency: Would continue hydration. The patient's renal function is improved. 3. Acute renal insufficiency: Most likely secondary to dehydration. Avoid nephrotoxic drugs. Renal function is improved with GFR is now 57. Most likely the patient chronic kidney disease, at present stage IIIa, due to longstanding hypertension and diabetes mellitus. 4. Elevated troponin which is trending down. This is secondary to atrial fibrillation with rapid ventricular response, and there was a type II AL due to supply demand mismatch.. No evidence of acute coronary syndrome. 5. Hypertension: Well-controlled. Continue beta-blockers. He is off off Cardizem infusion. 6. Coronary artery disease. History of coronary bypass graft surgery. Continue aspirin. Continue metoprolol. Continue statin. Later would recommend IV Lexiscan Cardiolite stress test. But imaging might be difficult due to patient's left hemiparesis and contracture. The other option is to treat the patient maximally for coronary artery disease and consider cardiac catheterization if the patient's symptomatic on good medical therapy for CAD. 7. History of cerebrovascular accident x2. There is significant left-sided weakness with contractures due to prior CVA. 8. History of diabetes mellitus: Continue antidiabetic treatment and Accu-Cheks as per protocol. 9. Hyperlipidemia: Continue statin. 10. COPD: Appears to be stable. 11. Covid19 testing has come back positive for coronavirus infection. 12. Probably has mild dementia. Medications reviewed. Medical management management plan discussed with attending provider on the case. Medical decision making is of moderate complexity. Cardiac status is stable. Will recommend that the patient can be discharged to [facility] from where he came if they would accept him. Cardiac status is stable. We will sign off. Discussed this with Dr. Vela
[2020-08-25] MEDS ORDERED: NITROGLYCERIN 15 MG (0.6 MG/1 HR) PATCH.TD24 TD ONE (21:00)
[2020-08-25] MEDS: ATORVASTATIN CALCIUM 80 MG TABLET PO SCH (21:04)
[2020-08-25] MEDS: CEFTRIAXONE 1 GM/D5W RTU 1 GM/50 ML RTUPB IV SCH (21:04)
[2020-08-25] MEDS: AMLODIPINE BESYLATE 2.5 MG TABLET PO SCH (21:04)
[2020-08-25] MEDS ORDERED: NITROGLYCERIN 15 MG (0.6 MG/1 HR) PATCH.TD24 ONE (21:43)
[2020-08-26] MEDS: NORMAL SALINE 1000 ML 1,000 ML IV PRN (03:15)
[2020-08-26] MEDS: PANTOPRAZOLE SODIUM 40 MG TABLET.DR PO SCH (05:43)
[2020-08-26 06:02] LABS: ABSOLUTE LYMPHOCYTES (AUTO) 0.9 10^3/uL (0.5-4.7); ABSOLUTE MONOCYTES (AUTO) 0.7 10^3/uL (0.1-1.4); ABSOLUTE NEUT (AUTO) 6.7 10^3/uL (1.7-8.2); BASOPHILS % (AUTO) 0.3 % (0-2); HEMATOCRIT 36.6 % (37.9-51.0); HEMOGLOBIN 12.2 g/dL (13.5-17.0); MEAN CORPUSCULAR HGB CONC 33.4 g/dL (32.0-36.0); MEAN CORPUSCULAR VOLUME 81 fl (80-97); MONOCYTES % (AUTO) 8.3 % (3-13); PLATELET COUNT 159 10^3/uL (150-450); RED BLOOD COUNT 4.53 10^6/uL (4.35-5.55); RED CELL DISTRIBUTION WIDTH 16.4 % (11.5-14.0); SEGMENTED NEUTROPHILS % (AUTO) 80.4 % (42-78); TOTAL CELLS COUNTED % (AUTO) 100 %; WHITE BLOOD COUNT 8.4 10^3/uL (4.0-10.5)
[2020-08-26 06:10] LABS: D-DIMER 1.12 ug/mL (0.00-0.50)
[2020-08-26 06:34] LABS: BLOOD UREA NITROGEN 22 mg/dL (7-20); CALCIUM 8.4 mg/dL (8.4-10.2); CARBON DIOXIDE 21 mmol/L (22-30); CHLORIDE 108 mmol/L (98-107); GLUCOSE 147 mg/dL (75-110); POTASSIUM 4.7 mmol/L (3.6-5.0)
[2020-08-26 06:35] LABS: ALBUMIN 3.1 g/dL (3.5-5.0); ALKALINE PHOSPHATASE 72 U/L (38-126); ANION GAP 9 (5-19); ASPARTATE AMINO TRANSFERASE 33 U/L (17-59); BILIRUBIN,DIRECT 0.3 mg/dL (0.0-0.4); BILIRUBIN,TOTAL 0.4 mg/dL (0.2-1.3); TOTAL PROTEIN 6.6 g/dL (6.3-8.2)
[2020-08-26] MEDS: BUDESONIDE NEB 0.5 MG/2 ML AMPUL NEB SCH (08:26)
[2020-08-26] MEDS: ALBUTEROL SULFATE 0.083% NEB 2.5 MG/3 ML AMPUL NEB SCH (08:26)
--- NOTE | 2020-08-26 08:45 | PDOC DISCHARGE SUMMARY ---
Impression - Admit/DC Date/PCP Admission Date/Primary Care Provider: 08/23/20 14:10 GRAHAM CABRAL MD Discharge Date: 08/26/20 - Discharge Diagnosis (1) Atrial fibrillation with rapid ventricular response Is this a current diagnosis for this admission?: Yes (2) Chronic diastolic CHF (congestive heart failure) Is this a current diagnosis for this admission?: Yes (3) COVID-19 virus detected Is this a current diagnosis for this admission?: Yes (4) Hypotension Is this a current diagnosis for this admission?: Yes (5) Dehydration Is this a current diagnosis for this admission?: Yes (6) Acute respiratory failure with hypoxia Is this a current diagnosis for this admission?: Yes (7) Acute kidney injury Is this a current diagnosis for this admission?: Yes (8) Fever Is this a current diagnosis for this admission?: Yes (9) COPD (chronic obstructive pulmonary disease) Is this a current diagnosis for this admission?: Yes - Assessment Summary: LATRICE MAO is a 69 year old male with PMH of dementia, HTN, HLD, CHF, COPD, DM2, CAD status post CABG, CVA with residual left-sided weakness and contractures, who is a resident of [facility], who presented to the ED with atrial fibrillation with RVR. Upon arrival EMS found him with a heart rate of 150. In the ED, VS were notable for tachycardia, hypotension, tachypnea and hypoxemia. He was placed on NC and started on a diltiazem drip. EKG showed AFRVR without ischemic changes. CXR showed no effusions, infiltrates or other findings. Labs were notable for elevated BUN/Cr and troponin of 0.10. Patient adamantly denies chest pain or pressure. He tells me that his SOB has resolved since he's been in the ED. His only concern is that he is thirsty. Per [facility] records, he was last tested for COVID-19 on 08/20 and his test was negative at that time. Here, in the ED, he tested positive. Atrial Fibrillation with RVR: he appeared quite dry on exam and some aspect of his tachycardia may have been due to hypovolemia. He was hydrated and restarted on his home metoprolol dose with excellent effect. He has also been started on Eliquis 5 mg PO BID for anticoagulation. NSTEMI, type 2: likely demand ischemia in the setting of infection/AFRVR. He denied chest pain/pressure. EKG shows no ischemic changes. Troponin peaked at 0.135. Cardiology (Dr. Reese) consulted and recommended to maximize his cardiac medications. Patient is not a candidate for stress testing due to his contractures and bedbound status. When his Covid-19 infection has resolved, perhaps in 2-4 weeks, an outpatient TTE is recommended. Covid-19 Infection: incidental finding. He has had no evidence of pneumonia on CXR. He is saturating 98-99% on RA. He has normal inflammatory markers. JUAN JOSE: due to dehydration in the s/o poor oral intake and diuretic use. He requires assistance with meals. His JUAN JOSE has improved with IVF hydration. His home Lasix has been changed from daily dosing to Mon/Thu/Fri dosing. If he continues to have poor oral intake, I recommend to DC Lasix altogether in the future. Hypotension: due to combination of AFRVR and dehydration. Resolved with hydration. Goals of Care: patient has advanced dementia. He is bed-bound, has contractures and is incontinent. He requires assistance with meals and reminders to eat/ drink. Family would like patient to remain a full code at this time. Continued goals of care discussions are recommended given poor overall prognosis and declining quality of life. - Additional Information Resuscitation Status: Full Code Discharge Diet: Cardiac Discharge Activity: Activity As Tolerated Referrals: GRAHAM CABRAL MD [Primary Care Provider] - Follow up as needed Prescriptions: Furosemide [Lasix 20 mg Tablet] 20 mg PO Q2DAYS #30 Home Medications: Acetaminophen [Tylenol 325 mg Tablet] 650 mg PO Q4HP PRN 02/09/19 Amantadine HCl [Amantadine] 100 mg PO Q12 02/09/19 Amlodipine Besylate [Norvasc 10 mg Tablet] 10 mg PO DAILY 02/09/19 Aspirin [Adult Low Dose Aspirin EC] 81 mg PO DAILY 02/09/19 Atorvastatin Calcium [Lipitor 80 mg Tablet] 80 mg PO QHS 02/09/19 Baclofen [Baclofen 20 mg Tablet] 30 mg PO TIDP PRN 02/09/19 Hydralazine HCl 100 mg PO Q8 02/09/19 Metoprolol Tartrate [Lopressor 100 mg Tablet] 100 mg PO Q12 02/09/19 Multivitamin [Multiple Vitamins] 1 tab PO DAILY 02/09/19 Polyethylene Glycol 3350 [Miralax Powder 17 gm/Packet] 17 gm PO DAILY 02/09/19 Albuterol Sulfate [Albuterol Sulfate Hfa] 2 puff IH Q6HP PRN 08/23/20 Albuterol Sulfate [Ventolin 0.083% Neb 2.5 mg/3 mL Ampul] 1 vial NEB RTQID 08/23/20 Allopurinol [Zyloprim 100 mg Tablet] 100 mg PO DAILY 08/23/20 Budesonide [Pulmicort Neb 0.5 mg/2 ml Ampul] 0.5 mg NEB RTQ12 08/23/20 Clonidine HCl [Catapres 0.2 mg Tablet] 0.2 mg PO Q12 08/23/20 Glipizide [Glipizide Xl] 5 mg PO DAILY 08/23/20 Prednisone [Deltasone 5 mg Tablet] 5 mg PO DAILY 08/23/20 Tamsulosin HCl [Flomax 0.4 mg Cap.sr] 0.4 mg PO DAILY 08/23/20 Apixaban [Eliquis 5 mg Tablet] 5 mg PO Q12 tablet 08/26/20 Furosemide [Lasix 20 mg Tablet] 20 mg PO Q2DAYS #30 08/26/20 History of Present Illiness History of Present Illness: LATRICE MAO is a 69 year old male with PMH of dementia, HTN, HLD, CHF, COPD, DM2, CAD status post CABG, CVA with residual left-sided weakness and contractures, who is a resident of [facility], who presented to the ED with atrial fibrillation with RVR. Patient is a poor history due to dementia. Per ED physician, Dr. Zapata: "Evidently EMS was initially called for him being unresponsive with a heart rate of 30. Upon arrival EMS found him to be fully responsive with a heart rate of 150." Physical Exam Vital Signs: Temp Pulse Resp BP Pulse Ox 98.0 F 77 19 144/90 H 94 08/26/20 03:59 08/26/20 07:00 08/26/20 03:59 08/26/20 03:59 08/26/20 03:59 Intake & Output 08/25/20 08/26/20 08/27/20 06:59 06:59 06:59 Intake Total 3968 2670 Output Total 1400 700 Balance 2568 1970 Weight 92.5 kg 94.4 kg Results Laboratory Results: WBC 8.4 10^3/uL (4.0-10.5) 08/26/20 05:41 RBC 4.53 10^6/uL (4.35-5.55) 08/26/20 05:41 Hgb 12.2 g/dL (13.5-17.0) L 08/26/20 05:41 Hct 36.6 % (37.9-51.0) L 08/26/20 05:41 MCV 81 fl (80-97) 08/26/20 05:41 MCH 27.0 pg (27.0-33.4) 08/26/20 05:41 MCHC 33.4 g/dL (32.0-36.0) 08/26/20 05:41 RDW 16.4 % (11.5-14.0) H 08/26/20 05:41 Plt Count 159 10^3/uL (150-450) 08/26/20 05:41 Lymph % (Auto) 11.0 % (13-45) L 08/26/20 05:41 [place] % (Auto) 8.3 % (3-13) 08/26/20 05:41 Eos % (Auto) 0.0 % (0-6) 08/26/20 05:41 Baso % (Auto) 0.3 % (0-2) 08/26/20 05:41 Absolute Neuts (auto) 6.7 10^3/uL (1.7-8.2) 08/26/20 05:41 Absolute Lymphs (auto) 0.9 10^3/uL (0.5-4.7) 08/26/20 05:41 Absolute Monos (auto) 0.7 10^3/uL (0.1-1.4) 08/26/20 05:41 Absolute Eos (auto) 0.0 10^3/uL (0.0-0.6) 08/26/20 05:41 Absolute Basos (auto) 0.0 10^3/uL (0.0-0.2) 08/26/20 05:41 Total Counted 100 08/23/20 10:43 Seg Neutrophils % 80.4 % (42-78) H 08/26/20 05:41 Seg Neuts % (Manual) 63 % (42-78) 08/23/20 10:43 Lymphocytes % (Manual) 22 % (13-45) 08/23/20 10:43 Monocytes % (Manual) 15 % (3-13) H 08/23/20 10:43 Eosinophils % (Manual) 0 % (0-6) 08/23/20 10:43 Basophils % (Manual) 0 % (0-2) 08/23/20 10:43 Abs Neuts (Manual) 5.2 10^3/uL (1.7-8.2) 08/23/20 10:43 Abs Lymphs (Manual) 1.8 10^3/uL (0.5-4.7) 08/23/20 10:43 Abs Monocytes (Manual) 1.2 10^3/uL (0.1-1.4) 08/23/20 10:43 Absolute Eos (Manual) 0.0 10^3/uL (0.0-0.6) 08/23/20 10:43 Abs Basophils (Manual) 0.0 10^3/uL (0.0-0.2) 08/23/20 10:43 Clumped Platelets PRESENT 08/23/20 10:43 Platelet Comment ADEQUATE 08/23/20 10:43 Polychromasia SLIGHT 08/23/20 10:43 Anisocytosis 1+ 08/23/20 10:43 PT 14.0 SEC (11.4-15.4) 08/23/20 10:43 INR 1.06 08/23/20 10:43 Fibrinogen 472 mg/dL (209-497) 08/26/20 05:41 D-Dimer 1.12 ug/mL (0.00-0.50) H 08/26/20 05:41 Carbonic Acid 0.89 mmol/L (1.05-1.35) L 08/23/20 11:55 HCO3/H2CO3 Ratio 23:1 08/23/20 11:55 ABG pH 7.48 (7.35-7.45) H 08/23/20 11:55 ABG pCO2 29.6 mmHg (35-45) L 08/23/20 11:55 ABG pO2 93.8 mmHg (80-100) 08/23/20 11:55 ABG HCO3 21.3 mmol/L (20-24) 08/23/20 11:55 ABG Total CO2 22.2 mmol/L (23-27) L 08/23/20 11:55 ABG O2 Saturation 97.7 % (94-98) 08/23/20 11:55 ABG Base Excess -1.0 mmol/L 08/23/20 11:55 VBG pH 7.39 (7.30-7.42) 08/23/20 10:43 VBG pCO2 42.8 mmHg (35-63) 08/23/20 10:43 VBG HCO3 25.2 mmol/L (20-32) 08/23/20 10:43 VBG Base Excess 0 mmol/L 08/23/20 10:43 FiO2 2L 08/23/20 11:55 Sodium 138.1 mmol/L (137-145) 08/26/20 05:41 Potassium 4.7 mmol/L (3.6-5.0) 08/26/20 05:41 Chloride 108 mmol/L (98-107) H 08/26/20 05:41 Carbon Dioxide 21 mmol/L (22-30) L 08/26/20 05:41 Anion Gap 9 (5-19) 08/26/20 05:41 BUN 22 mg/dL (7-20) H 08/26/20 05:41 Creatinine 1.23 mg/dL (0.52-1.25) 08/26/20 05:41 Est GFR ( Amer) > 60 (>60) 08/26/20 05:41 Est GFR (Non-Af Amer) Cancelled 08/24/20 07:59 Est GFR (MDRD) Non-Af 58 (>60) L 08/26/20 05:41 Glucose 147 mg/dL (75-110) H 08/26/20 05:41 Lactic Acid 1.7 mmol/L (0.7-2.1) 08/23/20 19:00 Calcium 8.4 mg/dL (8.4-10.2) 08/26/20 05:41 Ferritin 172.00 ng/mL (17.9-464.0) 08/26/20 05:41 Total Bilirubin 0.4 mg/dL (0.2-1.3) 08/26/20 05:41 Direct Bilirubin 0.3 mg/dL (0.0-0.4) 08/26/20 05:41 Neonat Total Bilirubin Not Reportable 08/26/20 05:41 Neonat Direct Bilirubin Not Reportable 08/26/20 05:41 Neonat Indirect Bili Not Reportable 08/26/20 05:41 AST 33 U/L (17-59) 08/26/20 05:41 ALT 19 U/L (<50) 08/26/20 05:41 Alkaline Phosphatase 72 U/L (38-126) 08/26/20 05:41 Troponin I 0.074 ng/mL 08/24/20 11:33 C-Reactive Protein 27.0 mg/L (<10.0) H 08/26/20 05:41 NT-Pro-B Natriuret Pep 9060 pg/mL (<125) H 08/23/20 10:43 Total Protein 6.6 g/dL (6.3-8.2) 08/26/20 05:41 Albumin 3.1 g/dL (3.5-5.0) L 08/26/20 05:41 EGFR Cancelled 08/24/20 07:59 TSH 4.38 uIU/mL (0.47-4.68) 08/23/20 10:43 Influenza A (RT-PCR) NEGATIVE (NEGATIVE) 08/23/20 10:43 Influenza B (RT-PCR) NEGATIVE (NEGATIVE) 08/23/20 10:43 RSV (RT-PCR) NEGATIVE (NEGATIVE) 08/23/20 10:43 SARS-CoV-2 Rap RNA(RT-PCR) POSITIVE (NEGATIVE) 08/23/20 10:43 08/23/20 08/23/20 08/23/20 10:43 13:41 19:00 Troponin I 0.106 0.135 0.132 NT-Pro-B Natriuret Pep 9060 H 08/24/20 08/24/20 00:48 11:33 Troponin I 0.097 0.074 NT-Pro-B Natriuret Pep Impressions: Chest X-Ray 08/23/20 10:48 IMPRESSION: NO ACUTE RADIOGRAPHIC FINDING IN THE CHEST. Stroke Is this a Stroke Patient?: No Acute Heart Failure Is this a Heart Failure Patient?: No
[2020-08-26] MEDS: ZINC SULFATE 220 MG CAPSULE PO SCH (09:13)
[2020-08-26] MEDS: CHOLECALCIFEROL (D3) 1,000 UNIT (25 MCG) TABLET PO SCH (09:13)
[2020-08-26] MEDS: AMLODIPINE BESYLATE 2.5 MG TABLET PO SCH (09:13)
[2020-08-26] MEDS: AMANTADINE HCL 100 MG CAPSULE PO SCH (09:13)
[2020-08-26] MEDS: ALLOPURINOL 100 MG TABLET PO SCH (09:13)
[2020-08-26] MEDS: METOPROLOL TARTRATE 100 MG TABLET PO SCH (09:13)
[2020-08-26] MEDS: TAMSULOSIN HCL 0.4 MG CAP.SR.24H PO SCH (09:14)
[2020-08-26] MEDS: APIXABAN 5 MG TABLET PO SCH (09:14)
[2020-08-26] MEDS: ASPIRIN 81 MG TABLET, ENT COATED PO SCH (09:14)
[2020-08-26] MEDS: POLYETHYLENE GLYCOL 3350 POWDER 17 GM/1 PACKET PO SCH (09:14)
[2020-08-26] MEDS ORDERED: NITROGLYCERIN 15 MG (0.6 MG/1 HR) PATCH.TD24 TD SCH (10:00)
[2020-08-26 10:35] VITALS: BP 104/68
[2020-08-26] MEDS: ASCORBIC ACID 500 MG TABLET PO SCH (10:36)
== END 2020-08-26 11:12 | DRG 177 ==
LOC: ER 10:30 → EH 14:10 → 3S 19:02
PROVIDERS: ADMIT Hospitalist; ATTEND Hospitalist
DX: U07.1 COVID-19 (principal); I21.A1 Myocardial infarction type 2; J96.01 Acute respiratory failure with hypoxia; I50.32 Chronic diastolic (congestive) heart failure; I69.354 Hemiplegia and hemiparesis following cerebral infarction affecting left non-dominant side; N17.9 Acute kidney failure, unspecified; I48.0 Paroxysmal atrial fibrillation; I69.398 Other sequelae of cerebral infarction; E86.0 Dehydration; E78.5 Hyperlipidemia, unspecified; J44.9 Chronic obstructive pulmonary disease, unspecified; M62.48 Contracture of muscle, other site; E11.9 Type 2 diabetes mellitus without complications; I11.0 Hypertensive heart disease with heart failure; F03.90 Unspecified dementia, unspecified severity, without behavioral disturbance, psychotic disturbance, mood disturbance, and anxiety; I95.9 Hypotension, unspecified; E89.0 Postprocedural hypothyroidism; Z79.899 Other long term (current) drug therapy; Z95.1 Presence of aortocoronary bypass graft; Z79.82 Long term (current) use of aspirin; Z74.01 Bed confinement status; Z79.01 Long term (current) use of anticoagulants
CPT/HCPCS: 36415; 71045; 80053; 82728; 82803; 83605; 83880; 84443; 84484; 85025; 85379; 85384; 85610; 86140; 87040; 93005; 93010; 94640; 96365; 96366; 96375; 96376; 99285; 0241U; C9803; J0696; J1100; J3490; J7030; J7613